=== PATIENT | female | born 1995 ===

== ENCOUNTER 2025-01-17 07:53 | Outpatient (AMB) | payer OTHER, SELFPAY ==
--- OUTSIDE RECORDS SUMMARY | 2025-01-17 07:57 | XMS_ITS | Clinical Summary ---
Author Organization [facility] [place] Address [address], [place] Phone Care Team Providers Care Medical Clinic Manager Name Role Phone Concepción Clark MD Primary Care Provider [phone] Allergies No known active allergies Medications albuterol HFA (PROAIR HFA ; PROVENTIL HFA ; VENTOLIN HFA) 90 mcg/actuation inhaler Inhale 2 puffs every 6 (six) hours if needed for wheezing. Active fluticasone-umecli dinium-vilanterol (Trelegy Ellipta) 100-62.5-25 mcg inhaler Inhale 1 puff (100 mcg total) 1 (one) time each day. Rinse mouth with water after use to reduce aftertaste and incidence of candidiasis. Do not swallow. Active ondansetron ODT (ZOFRAN-ODT) 4 mg disintegrating tablet Let 1 tablet dissolve under the tongue three times daily as needed for nausea or vomiting. 10 tablet Active Active Problems Problem Noted Date Diagnosed Date Moderate persistent asthma with exacerbation Asthma exacerbation 05/22/2023 Acute right-sided low back pain without sciatica 07/06/2022 Encounters Date Type Department Care Team Description 11/03/2024 12:17 PM EDT - 11/03/2024 1:34 PM EDT Emergency [facility] Emergency Department [address] [place] [address] Ander Sepulveda, Acute otitis externa of left ear, unspecified type (Primary Dx) Discharge Disposition: Home or Self Care from Last 3 Months Surgical History Surgery Date Site/Laterality Comments HAND SURGERY Medical History Medical History Date Comments Asthma Social History Tobacco Use Types Packs/Day Years Used Date Smoking Tobacco: Never Smokeless Tobacco: Never Tobacco Cessation:Counseling Given: Not Answered Alcohol Use Standard Drinks/Week Comments Never 0 (1 standard drink = 0.6 oz pur e alcohol) Interpersonal Safety Answer Date Record ed Physical Abuse 05/22/2023 Verbal Abuse 05/22/2023 Comments Unknown Sex and Gender Information Value Date Recorded Sex Assigned at Female 09/10/2024 8:20 PM EST Legal Sex Female 11:02 AM EDT Gender Identity Female 09/10/2024 8:20 PM EST Sexual Orientation Straight 09/10/2024 8: 20 PM EST Obstetrics History Last Filed Vital Signs Vital Sign Reading Time Taken Comments Blood Pressure 106/79 11/03/2024 11:38 AM EDT Pulse 77 11/03/2024 11:38 AM EDT Temperature 36.7 C (98 F) 11/03/2024 11:38 AM EDT Respiratory Rate 16 11/03/2024 11:38 AM EDT Oxygen Saturation 99% 11/03/2024 11:38 AM EDT Inhaled Oxygen Concentration - - Weight 111 kg (245 lb 8 oz) 11/03/2024 11:38 AM EDT Height 154.9 cm (5' 1 ) 11/03/2024 11:38 AM EDT Body Mass Index 46.39 11/03/2024 11:38 AM EDT Plan of Treatment Health Maintenance Due Date Last Done Comments Pneumococcal Vaccine: Pediatrics (0 to 5 Years) and At-Risk Patients (6 to 64 Years) (1 of 2 - PCV) 2013 IPV Vaccines (3 of 3 - 4-dose series) 07/27/2014 01/24/2014, 07/20/2012 Cervical Cancer Screening: Pap Smear 10/03/2015 Cholesterol Screening (Lipid Panel) 04/28/2022 Depression Screening 04/28/2022 HIV Screening 04/28/2022 Social Influencers of Health Screening 04/28/2022 COVID-19 Vaccine ( season) 2024 05/29/2021, 05/01/2021 Influenza Vaccine (Season Ended) 2025 08/26/2023, 07/01/2023, 08/01/2018, Additional history exists DTaP,Tdap,and Td Vaccines (4 - Td or Tdap) 01/03/2029 01/03/2019, 03/17/2016, 07/20/2012 Meningococcal ACWY Vaccine Completed 08/27/2011 Varicella Vaccines Completed 07/20/2012, 04/04/2007 HPV Vaccines Completed 01/24/2014, 07/25, 03/18/2010 Hepatitis A Vaccines Completed 01/24/2014, 08/11/19 13 MMR Vaccines Completed 01/24/2014, 07/20/2012 Hepatitis B Vaccines Completed 08/25/2015, 01/24/2014, 07/20/2012 Hepatitis C Screening Completed 08/29/2018 HIB Vaccines Aged Out No longer eligi ble based on patient's age to complete this topic Meningococcal B Vaccine Aged Out No l onger eligible based on patient's age to complete this topic RSV Immunization Patients Under 20 months Aged Out No longer eligible based on patient's age to complete this topic Advance Directives * Full Code - Confirmed (Latest Code Status on File) Date Activated Date Inactivated Comments 05/22/2023 2:11 AM 05/24/2023 3:43 PM This code status was ascertained in the following way: Discussed and Confirmed with patient. Care Teams Medical Clinic Manager Relationship Specialty Start Date End Date Concepción Clark MD [address] [place] [id number] PCP - General Internal Medicine 05/21/23
--- NOTE | 2025-01-17 08:28 | MHC.PC.OV ---
Vital Signs 01/17/25 08:34 Height 5 ft 1.42 in Weight 238 lb 4 oz BMI 44.4 BP 104/80 Blood Pressure Location Lt brachial Position Sitting Respiration 16 Pulse 83 Pulse Source Pulse Oximeter Temp 98.5 F Temp Source Oral Pulse Oximetry (%) 98 Oxygen Delivery Method Room Air Intake Visit Reasons: establish care Patient Support Associate Required: No Accompanied by: Mother Allergies No Known Allergies Allergy (Verified 01/17/25 08:54) Medication List - Last Reconciled 01/17/25 by LUCINA Iglesias albuterol sulfate 90 mcg/actuation 2 puffs inhalation Q6H PRN Tobacco use date assessed: 01/17/25 Dental Screening Dental Screen Date: 01/17/25 Did you have a dental visit in the last 12 months?: Yes Did you have a dental problem in the last 6 months where you did not have access to dental care?: No Was dental information given to patient?: Patient has dentist HPI establish care HPI Details Previous PCP: Reports that she was in [facility] and the they used to give her different dr. kael Palomo Last visit: 2 years ago Last PE:same Specialist: no OBGYN:will need a referral Past medical history: moderate Asthma, haital hernia, fatty liver, ?pre or diabetic, recurrent zohreh, morbid obesity-was supposed to have gastric bypass and they was going to repair her hernia but she loss her insurance Past Surgical history:right hand surgery age 11 years Medications: symbicort inhaler, ventolin inhaler Family HX: Problem: genital herpes: a1c 6.0% prediabetes PFSH Family History (Updated 01/17/25 @ 09:08 by LUCINA Iglesias) Maternal Grandmother Diabetes Father Heart attack Maternal Grandmother Hypertension Mother Asthma Paternal Grandmother Diabetes Social History (Updated 01/17/25 @ 08:41 by KASSY Mckeon) Household Members: Family Both parents involved: No Caregiver staying overnight: No Housing: Apartment Patient Tobacco Use Status: Current someday Tobacco user e-Cigarette/Vaping Use: Never Used Second Hand Smoke Exposure: No service: No Current occupational status: unemployed Current occupational exposures/hazards: No Cognitive needs: No Hearing needs: No Vision needs: No Questionnaire PHQ-9 Over the last 2 weeks, how often have you been bothered by any of the following problems? 1. Little interest or pleasure in doing things: not at all 2. Feeling down, depressed, or hopeless: not at all 3. Trouble falling or staying asleep, or sleeping too much: not at all 4. Feeling tired or having little energy: several days 5. Poor appetite or overeating: not at all 6. Feeling bad about yourself - or that you are a failure or have let yourself or your family down: not at all 7. Trouble concentrating on things, such as reading the newspaper or watching television: not at all 8. Moving or speaking so slowly that other people could have noticed. Or the opposite - being so fidgety or restless that you have been moving around a lot more than usual: not at all 9. Thoughts that you would be better off or of hurting yourself in some way: not at all Total score: 1 Source: Developed by Drs. Ankit Colón, Alessandra Espinoza, Wesley Ferraro and colleagues, with an educational iban from [employer]. Thrive Questionnaire Date Thrive assessed: 01/07/25 I am a: Patient What is your living situation today?: I have a steady place to live Within the past 12 months, did the food you bought not last and you didn't have the money to get more?: Never true Within the past 12 months, did you worry whether your food would run out before you got money to buy more?: Never true Do you have trouble paying for medicines?: No Do you have trouble getting transportation to medical appointments?: No Do you have trouble paying your heating and electricity bill?: No Do you have trouble taking care of your child, family member or friend?: No Do you have trouble with day-to-day activities such as bathing, preparing meals, shopping, managing finances, etc.?: No Are you currently unemployed and looking for a job?: Yes Are you interested in more education?: No Please select the resources that you would like help with: None Currently or been in a relationship where the following occur: I choose not to answer THRIVE Score: 0 AUDIT C Alcohol Use Questionnaire (AUDIT-C) 1. How often do you have a drink containing alcohol?: 2-4 times a month 2. How many drinks containing alcohol do you have on a typical day when you are drinking?: 5 or 6 3. How often do you have six or more drinks on one occasion?: Weekly Total Score: 7 DACIA-7 AMB Questionnaire DACIA-7 Date DACIA - 7 assessed: 01/17/25 Feeling nervous, anxious, or on edge: 0 = Not at all Not being able to stop or control worryin = Not at all Worrying too much about different things: 0 = Not at all Trouble relaxin = Not at all Being so restless that it is hard to sit still: 0 = Not at all Becoming easily annoyed or irritable: 0 = Not at all Feeling afraid as if something awful might happen: 0 = Not at all Total DACIA-7 score (0-4 normal; 5-9 mild; 10-14 moderate; 15-21 severe): 0 Source: Developed by Drs. Ankit Colón, Alessandra Espinoza, Wesley Ferraro and colleagues, with an educational iban from [employer]. Review of Systems Const Reports headache(s) (hx migraines sound and light bothers her) Eyes Denies loss of vision ENT Denies vertigo, Denies dizziness, Reports headache(s) (hx migraines sound and light bothers her) and Denies sore throat Card Denies chest pain, Denies leg edema and Denies lightheadedness Resp Denies cough, Denies hemoptysis and Denies wheezing GI Denies abdominal pain, Denies melena, Denies constipation, Reports heartburn (frequent attribute to her hernia), Denies diarrhea and Denies vomiting Reports abnormal menses (goes for only 3 times a year. Stopped Depo like 2 years ago), Denies urinary frequency, Denies dysuria and Denies urinary urgency Musc Denies arthralgias, Denies joint swelling, Denies numbness and Denies tingling Neuro Denies Abnormal speech present, Denies behavioral changes, Denies vertigo, Denies dizziness, Reports headache(s) (hx migraines sound and light bothers her), Denies loss of vision, Denies memory loss, Denies numbness and Denies tingling Psych Denies anxiety, Denies behavioral changes, Denies depression, Denies memory loss and Denies panic attacks Charlie/Lymph Denies easy bleeding and Denies easy bruising Aller/Immun Denies wheezing Physical exam (Primary Care) Vital Signs: Last Vital Signs Temp 98.5 F 01/17/25 08:34 Pulse 83 01/17/25 08:34 Resp 16 01/17/25 08:34 BP 104/80 01/17/25 08:34 Pulse Ox 98 01/17/25 08:34 Oxygen Delivery Method Room Air 01/17/25 08:34 BMI result Body Mass Index 44.4 Tobacco/Smoking Status: Tobacco use Status Tobacco use date assessed 01/17/25 01/17/25 08:44 Patient Tobacco Use Status Current someday Tobacco 01/17/25 08:44 e-Cigarette/Vaping Use Never Used 01/17/25 08:44 PHQ-9: PHQ-9 Score PHQ-9: Total score 1 01/17/25 08:45 Thrive Assessment: Date of Thrive Assessment Date Thrive assessed 01/07/25 01/17/25 08:31 Currently or been in a relationship where the following occur: I choose not to answer Const General: healthy appearing, no acute distress, alert and awake Nutritional Appearance: well nourished Orientation/consciousness: oriented to person, oriented to place and oriented to time HENMT Ears: TM's normal bilaterally General nose exam: Normal nasal mucous membranes and turbinates present Eyes Conjunctivae: conjunctivae normal Sclerae: sclerae normal Pupils: Equal, round and reactive pupils present Neck Neck: Yes no lymphadenopathy and Yes no JVD Thyroid: Thyroid normal Carotids: no bruits Resp Effort & Inspection: normal respiratory effort and not tachypneic Auscultation: no crackles, no rales, no rhonchi and no wheezes Cardio Rate: regular rate Rhythm: regular rhythm Heart sounds: no murmurs and normal S1 and S2 GI Palpation (GI): Soft to palpation, Tenderness to palpation present (GI) in the epigastrum, no hepatomegaly and no splenomegaly Auscultation: normal bowel sounds Skin General skin exam: no rashes or lesions noted and dry skin Neuro General: oriented to person, oriented to place and oriented to time Cranial nerves: Yes Equal, round and reactive pupils present Speech: No Abnormal speech present Gait exam (Neuro): Normal gait present Motor exam (neuro): no tremor noted Extrem Right upper extremity: full ROM Left upper extremity: full ROM Right lower extremity: full ROM; no edema Left lower extremity: full ROM; no edema Psych Mental Status: mental status grossly normal Speech and movement: Normal speech and movement present Affect: normal affect Attitude: cooperative Thought process: Normal thought process present Results AMB Hemoglobin A1c AMB Hemoglobin A1c 6.0 % Last Edit by KASSY Mckeon on 01/17/25 09:23 Coding Assessment & Plan Assessment & Plan Orders: Orders Lipid Panel Today Z00.00 - Encounter for general adult medical examination without abnormal findings AMB Hemoglobin A1c Today Z13.9 - Encounter for screening, unspecified Complete Blood Count Auto Diff Today Z00.00 - Encounter for general adult medical examination without abnormal findings Comprehensive [place]. Panel Fast Today Z00.00 - Encounter for general adult medical examination without abnormal findings TSH reflex Free T4 Today Z00.00 - Encounter for general adult medical examination without abnormal findings UA CC w/rflx Micro + Cult Today Z00.00 - Encounter for general adult medical examination without abnormal findings Vitamin D 25-OH Total Today Z00.00 - Encounter for general adult medical examination without abnormal findings Medications: New albuterol sulfate 90 mcg/actuation (Ventolin HFA) 2 puffs inhalation Q4-6H PRN 8.5 grams 3RF shortness of breath or wheezing valacyclovir 500 mg PO BID 20 tabs 0RF 10 days budesonide-formoterol 160-4.5 mcg/actuation (Symbicort) 2 puffs inhalation BID 10.2 grams 3RF
[2025-01-17 08:34] VITALS: BP 104/80; PULSE 83; RESP 16; TEMP 36.9; O2SAT 98; BMI 44.4
== END 2025-01-17 09:29 | disposition home or self-care (01) ==
LOC: HO.HMCH 07:54
DX: Z13.9 Encounter for screening, unspecified (principal)

== ENCOUNTER → 2025-01-17 07:53 | Outpatient (BNVA) | payer OTHER, SELFPAY | DX: R73.03 Prediabetes (principal); J45.909 Unspecified asthma, uncomplicated; A60.04 Herpesviral vulvovaginitis; K44.9 Diaphragmatic hernia without obstruction or gangrene; R12 Heartburn; N92.6 Irregular menstruation, unspecified; J45.40 Moderate persistent asthma, uncomplicated; E66.01 Morbid (severe) obesity due to excess calories; G43.901 Migraine, unspecified, not intractable, with status migrainosus; K76.0 Fatty (change of) liver, not elsewhere classified | CPT/HCPCS: 83036; 96127; 99202 ==

== ENCOUNTER 2025-01-18 07:30 | Outpatient (REF) | payer OTHER, SELFPAY ==
[2025-01-18 07:47] LABS: MANUAL DIFF FLAG NO
[2025-01-18 08:03] LABS: Basophils Absolute Auto 0.1 X10*3/uL (0.0-0.2); Basophils Percent Auto 0.4 % (0-2); Eosinophils Absolute Auto 0.5 X10*3/uL (0.0-0.4); Eosinophils Percent Auto 3.7 % (0-4); Hematocrit 39.9 % (37.0-47.0); Imm Gran Abs Auto 0.06 X10*3/uL (0.00-0.03); Imm Gran Pct Auto 0.4 % (0.0-0.4); Lymphocytes Absolute Auto 3.3 X10*3/uL (1.2-4.9); Lymphocytes Percent Auto 24.4 % (20-40); Mean Corpuscular HGB Conc 32.6 g/dl (31.0-35.0); Mean Corpuscular Volume 76.9 fL (80.0-98.0); Mean Platelet Volume 9.4 fL (9.4-12.3); Monocytes Absolute Auto 0.6 X10*3/uL (0.1-1.2); Monocytes Percent Auto 4.3 % (2-11); Neutrophils Absolute Auto 9.1 x10*3/uL (2.0-8.3); Neutrophils Percent Auto 66.8 % (45-73); Platelet Count 308 X10*3/uL (160-400); Red Blood Count 5.19 X10*6/uL (4.20-5.50); Red Cell Distribution Width 15.8 % (11.0-16.0); White Blood Count 13.6 X10*3/uL (4.8-10.8)
[2025-01-18 08:12] LABS: Appearance Urine Clear; Color Urine Yellow; Glucose Urine UA Negative (Negative); Leukocyte Esterase Urine Trace (Negative); Nitrite Urine Negative (Negative); PH 5.5 (5.0-9.0); Specific Gravity - Urine 1.025 (1.005-1.025); UMIC TRIGGER UACC YES; Urine Blood Negative (Negative); Urine Ketones Negative (Negative); Urine Protein Negative (Neg-Trace)
[2025-01-18 08:15] LABS: Bacteria Urine 1+ (None Seen); Hyaline Casts Urine 0-2 /LPF (0-2); RBC Urine 0-2 /HPF (0-2); UACC Culture Trigger YES
[2025-01-18 08:34] LABS: Alanine Aminotransferase 67 U/L (0-31); Albumin Level 4.3 g/dL (3.5-5.0); Alkaline Phosphatase 108 U/L (39-117); Anion Gap 12 (12-20); Aspartate Amino Transferase 43 U/L (5-31); Bilirubin Total 0.2 mg/dL (0.0-1.0); Blood Urea Nitrogen 11 mg/dL (9-16); Calcium 9.5 mg/dL (8.4-10.2); Carbon Dioxide 23 mmol/L (22-29); Chloride 105 mmol/L (96-108); Cholesterol 136 mg/dL (<200); Estimated Glomerular Filt Rate > 60; Glucose Fasting 118 mg/dL (60-99); HDL Cholesterol 37 mg/dL (>40); LDL Cholesterol Calculated 49 mg/dL (<100); Potassium 4.2 mmol/L (3.3-5.1); Sodium 136 mmol/L (135-145); Total Protein 7.4 g/dL (6.5-8.0); Triglycerides 250 mg/dL (<150)
[2025-01-18 08:54] LABS: TSH reflex Free T4 1.45 uIU/mL (0.32-4.0); Vitamin D 25-OH Total 23.6 ng/mL (>30)
== END 2025-01-18 07:31 | disposition home or self-care (01) ==
LOC: HO.LAB 07:30
DX: Z00.00 Encounter for general adult medical examination without abnormal findings (principal)
CPT/HCPCS: 36415; 80053; 80061; 81001; 82306; 84443; 85025; 87086; 87147

== ENCOUNTER 2025-03-15 09:30 | Outpatient (AMB) | payer OTHER, SELFPAY ==
[2025-03-15 09:32] VITALS: BP 130/78; PULSE 77; RESP 18; TEMP 36.3; O2SAT 99; BMI 44.3
--- NOTE | 2025-03-15 09:32 | A.OFFPC_ITS ---
Vital Signs 03/15/25 09:32 Height 5 ft 1.5 in Weight 238 lb 4 oz BMI 44.3 BP 130/78 Blood Pressure Location Lt brachial Position Sitting Respiration 18 Pulse 77 Pulse Source Pulse Oximeter Temp 97.3 F Temp Source Temporal Artery Scan Pulse Oximetry (%) 99 Oxygen Delivery Method Room Air Intake Visit Reasons: 8 week f/u Finance Teacher Required: No Accompanied by: Self / Same As Patient Allergies No Known Allergies Allergy (Verified 03/15/25 09:47) Medication List - Last Reconciled 03/15/25 by LUCINA Iglesias albuterol sulfate 90 mcg/actuation 2 puffs inhalation Q6H PRN albuterol sulfate 90 mcg/actuation (Ventolin HFA) 2 puffs inhalation Q4-6H PRN budesonide-formoterol 160-4.5 mcg/actuation (Symbicort) 2 puffs inhalation BID valacyclovir 500 mg PO BID 10 days Tobacco use date assessed: 03/15/25 Dental Screening Dental Screen Date: 03/15/25 Did you have a dental visit in the last 12 months?: Yes Did you have a dental problem in the last 6 months where you did not have access to dental care?: No Was dental information given to patient?: Patient has dentist HPI 8 week f/u HPI Details The patient is a 29-year-old female presenting with fatigue, gastrointestinal issues, migraines, HLD, Weight management, asthma The patient reports experiencing gastrointestinal recurrent heartburns/hx of haital hernia, for which she has an upcoming appointment with a nurses' association counselor. She has been experiencing migraines, which occur intermittently, lasting three to four days at a time. The patient reports persistent fatigue despite sleeping 8 to 9 hours per night. She denies any episodes of waking up gasping for air and has not experienced any significant changes since a sleep study conducted two years ago. The patient has been losing weight, previously weighing 260 pounds, which she attributes to dietary changes. Laboratory results indicate a slightly elevated white blood cell count, normal hemoglobin and hematocrit levels, and a fasting glucose level in the prediabetic range. Liver enzymes are slightly elevated, consistent with fatty liver disease, and triglycerides are elevated at 250 mg/dL. Vitamin D levels are low, measured at 23 ng/mL. She reports mild lower back pain that she thinks is related to epidural injections received during childbirth of her kids. Reports that it is not always present and it is mild in nature. [facility]LY [facility] Medical History Migraines Recurrent candidiasis of vagina Morbid obesity Fatty liver Asthma Hiatal hernia Genital herpes Prediabetes Surgical History H/O hand surgery Family History Maternal Grandmother Diabetes Father Heart attack Maternal Grandmother Hypertension Mother Asthma Paternal Grandmother Diabetes Social History Household Members: Family Both parents involved: No Caregiver staying overnight: No Housing: Apartment Alcohol intake: current Alcohol intake frequency: holidays/special occasions only Patient Tobacco Use Status: Current someday Tobacco user e-Cigarette/Vaping Use: Never Used Second Hand Smoke Exposure: No service: No Current occupational status: unemployed Current occupational exposures/hazards: No Cognitive needs: No Hearing needs: No Vision needs: No Questionnaire PHQ-9 Over the last 2 weeks, how often have you been bothered by any of the following problems? 1. Little interest or pleasure in doing things: not at all 2. Feeling down, depressed, or hopeless: not at all 3. Trouble falling or staying asleep, or sleeping too much: not at all 4. Feeling tired or having little energy: several days 5. Poor appetite or overeating: not at all 6. Feeling bad about yourself - or that you are a failure or have let yourself or your family down: not at all 7. Trouble concentrating on things, such as reading the newspaper or watching television: not at all 8. Moving or speaking so slowly that other people could have noticed. Or the opposite - being so fidgety or restless that you have been moving around a lot more than usual: not at all 9. Thoughts that you would be better off or of hurting yourself in some way: not at all Total score: 1 Depression Screening Interpretation: Negative Depression Screening Done: Yes Source: Developed by Drs. Ankit Colón, Alessandra B.W. Wesley Espinoza and colleagues, with an educational iban from [employer]. Thrive Questionnaire Date Thrive assessed: 03/15/25 I am a: Patient What is your living situation today?: I have a steady place to live Within the past 12 months, did the food you bought not last and you didn't have the money to get more?: Never true Within the past 12 months, did you worry whether your food would run out before you got money to buy more?: Never true Do you have trouble paying for medicines?: No Do you have trouble getting transportation to medical appointments?: No Do you have trouble paying your heating and electricity bill?: No Do you have trouble taking care of your child, family member or friend?: No Do you have trouble with day-to-day activities such as bathing, preparing meals, shopping, managing finances, etc.?: No Are you currently unemployed and looking for a job?: Yes Are you interested in more education?: No Please select the resources that you would like help with: None Currently or been in a relationship where the following occur: I choose not to answer THRIVE Score: 0 AUDIT C Alcohol Use Questionnaire (AUDIT-C) 1. How often do you have a drink containing alcohol?: 2-4 times a month 2. How many drinks containing alcohol do you have on a typical day when you are drinking?: 5 or 6 3. How often do you have six or more drinks on one occasion?: Weekly Total Score: 7 DACIA-7 AMB Questionnaire DACIA-7 Date DACIA - 7 assessed: 03/15/25 Feeling nervous, anxious, or on edge: 0 = Not at all Not being able to stop or control worryin = Not at all Worrying too much about different things: 0 = Not at all Trouble relaxin = Not at all Being so restless that it is hard to sit still: 0 = Not at all Becoming easily annoyed or irritable: 0 = Not at all Feeling afraid as if something awful might happen: 0 = Not at all Total DACIA-7 score (0-4 normal; 5-9 mild; 10-14 moderate; 15-21 severe): 0 Source: Developed by Drs. Anikt Colón, Wesley Dahl and colleagues, with an educational iban from [employer]. Review of Systems Const Reports daytime sleepiness, Reports fatigue, Reports headache(s) (on and off, but severe when present (could last 3 days)) and Reports snoring Eyes Denies loss of vision and Reports photophobia (during headaches) ENT Denies vertigo, Denies dizziness, Reports headache(s) (on and off, but severe when present (could last 3 days)) and Denies sore throat Card Denies chest pain, Denies leg edema and Denies lightheadedness Resp Denies cough, Denies hemoptysis, Reports snoring and Denies wheezing GI Denies abdominal pain, Denies melena, Denies constipation, Reports heartburn (recurrent depending on what she eats), Denies diarrhea and Denies vomiting Reports abnormal menses, Denies urinary frequency, Denies dysuria and Denies urinary urgency Musc Reports back pain (mild and occasional), Denies arthralgias, Denies joint swelling, Denies numbness and Denies tingling Neuro Denies Abnormal speech present, Denies behavioral changes, Denies vertigo, Denies dizziness, Reports headache(s) (on and off, but severe when present (could last 3 days)), Denies loss of vision, Denies memory loss, Denies numbness and Denies tingling Psych Denies anxiety, Denies behavioral changes, Denies depression, Denies memory loss and Denies panic attacks Endo Reports fatigue Charlie/Lymph Denies easy bleeding and Denies easy bruising Aller/Immun Denies wheezing Physical exam (Primary Care) Vital Signs: Last Vital Signs Temp 97.3 F 03/15/25 09:32 Pulse 77 03/15/25 09:32 Resp 18 03/15/25 09:32 BP 130/78 03/15/25 09:32 Pulse Ox 99 03/15/25 09:32 Oxygen Delivery Method Room Air 03/15/25 09:32 BMI result Body Mass Index 44.3 Tobacco/Smoking Status: Tobacco use Status Tobacco use date assessed 03/15/25 03/15/25 09:39 Patient Tobacco Use Status Current someday Tobacco 03/15/25 09:39 e-Cigarette/Vaping Use Never Used 03/15/25 09:39 PHQ-9: PHQ-9 Score PHQ-9: Total score 1 03/15/25 13:05 Depression Screening Interpretation: Negative Thrive Assessment: Date of Thrive Assessment Date Thrive assessed 03/15/25 03/15/25 09:39 Currently or been in a relationship where the following occur: I choose not to answer Const General: healthy appearing, no acute distress, alert and awake Nutritional Appearance: obese morbidly obese Orientation/consciousness: oriented to person, oriented to place and oriented to time [facility] Ears: hearing grossly normal bilaterally General nose exam: Normal nasal mucous membranes and turbinates present Eyes Conjunctivae: conjunctivae normal Sclerae: sclerae normal Pupils: Equal, round and reactive pupils present Direct Ophthalmoscopy: photophobia (during headaches) Neck Neck: Yes no lymphadenopathy and Yes no JVD Thyroid: Thyroid normal Carotids: no bruits Resp Effort & Inspection: normal respiratory effort and not tachypneic Auscultation: no crackles, no rales, no rhonchi and no wheezes Cardio Rate: regular rate Rhythm: regular rhythm Heart sounds: no murmurs and normal S1 and S2 GI Inspection: Yes obesity Palpation (GI): Soft to palpation, nontender, no hepatomegaly and no splenomegaly Auscultation: normal bowel sounds Back/Spine/Pelvis Thoracic/Lumbar Spine: No lumbar spinal tenderness Skin General skin exam: no rashes or lesions noted and dry skin Neuro General: oriented to person, oriented to place, oriented to time, no focal motor deficits and CN's II-XI intact bilaterally Cranial nerves: Yes Equal, round and reactive pupils present Speech: No Abnormal speech present Gait exam (Neuro): Normal gait present Motor exam (neuro): no tremor noted Extrem Right upper extremity: full ROM Left upper extremity: full ROM Right lower extremity: full ROM; no edema Left lower extremity: full ROM; no edema Psych Mental Status: mental status grossly normal Speech and movement: Normal speech and movement present Affect: normal affect Attitude: cooperative Thought process: Normal thought process present Results Reviewed Results Reviewed: Laboratory Tests 01/17/25 01/18/25 01/18/25 09:03 07:45 07:46 WBC 13.6 H RBC 5.19 Hgb 13.0 Hct 39.9 MCV 76.9 L MCH 25.0 L MCHC 32.6 RDW 15.8 Plt Count 308 Sodium 136 Potassium 4.2 Chloride 105 Carbon Dioxide 23 Anion Gap 12 BUN 11 Creatinine 0.70 Estim Creat Clear Calc Not Reportable Estimated GFR > 60 Fasting Glucose 118 H Hgb A1c (Clinic) 6.0 Calcium 9.5 Total Bilirubin 0.2 AST 43 H ALT 67 H Alkaline Phosphatase 108 Total Protein 7.4 Albumin 4.3 Cholesterol 136 LDL Cholesterol, Calc 49 HDL Cholesterol 37 L 25-OH Vitamin D Total 23.6 L TSH 1.45 Urine Color Yellow Urine Appearance Clear Urine pH 5.5 Ur Specific Mcclave 1.025 Urine Protein Negative Urine Glucose (UA) Negative Urine Ketones Negative Urine Blood Negative Urine Nitrite Negative Ur Leukocyte Esterase Trace H Urine RBC 0-2 Urine WBC 6-10 H Ur Squamous Epith Cells 11-20 Urine Bacteria 1+ Hyaline Casts 0-2 Coding Level of Care Code Est Pt Level 4 (16838) Diagnoses Prediabetes R73.03 Morbid obesity E66.01 Heartburn R12 Fatty liver K76.0 Irregular periods/menstrual cycles N92.6 Anemia, unspecified type D64.9 Anemia type: unspecified type Migraine with status migrainosus, not intractable, unspecified migraine type G43.901 Intractability: not intractable Migraine type: unspecified Status migrainosus presence: with status migrainosus Moderate persistent asthma, unspecified whether complicated J45.40 Asthma complication type: unspecified Asthma persistence: persistent Asthma severity: moderate Mixed hyperlipidemia E78.2 Hyperlipidemia type: mixed hyperlipidemia Fatigue, unspecified type R53.83 Fatigue type: unspecified Time Spent (min) 43 Assessment & Plan Assessment & Plan (1) Prediabetes: Code(s): R73.03 - Prediabetes Category: Medical Plan: The patient remains in the prediabetic range. Reinforced low sugar/carbohydrate diet We will continue to monitor fasting glucose and A1c (2) Morbid obesity: Code(s): E66.01 - Morbid (severe) obesity due to excess calories Category: Medical Plan: Encouraged to exercise for at least 30 minutes a day/5 days a week Healthy eating discussed. Encouraged to eat fruits/vegetables, protein- fish/baked chicken, and to avoid salty/fried foods, sweets, caffeine and carbohydrates. Encouraged to increase water intake 6-8 glasses a day (3) Heartburn: Code(s): R12 - Heartburn Category: Medical Plan: Do not eat meals or drink carbonated beverages within 3 hr of bedtime Decrease the amount of fried, fatty, and spicy foods to decrease gastric acid production Raise the head of the bed using 4 to 6-inch blocks, especially if nocturnal symptoms are present Lose weight if indicated; avoid tight-fitting clothing, especially around the waist Avoid foods that relax the Lower esophageal sphincter (chocolate, peppermint, high-fat foods etc.,) (4) Fatty liver: Code(s): K76.0 - Fatty (change of) liver, not elsewhere classified Category: Medical Plan: AST 43 and ALT 67 Avoid alcohol, moderate use of medication containing acetaminophen, continue low-fat foods We will repeat CMP three-month (5) Irregular periods/menstrual cycles: Code(s): N92.6 - Irregular menstruation, unspecified Category: Medical Plan: Patient reports that this started after discontinuing Depo injections 3 years ago She was referred to OBGYN (6) Anemia: Code(s): D64.9 - Anemia, unspecified Category: Medical Qualifiers: Anemia type: unspecified type Qualified Code(s): D64.9 - Anemia, unspecified Plan: Patient reports a history. H&H within normal limits. MCV an MCH noted to be low. The patient is complaining of fatigue. We will add a iron panel to her follow up labs (7) Migraines: Code(s): G43.909 - Migraine, unspecified, not intractable, without status migrainosus Category: Medical Qualifiers: Intractability: not intractable Migraine type: unspecified Status migrainosus presence: with status migrainosus Qualified Code(s): G43.901 - Migraine, unspecified, not intractable, with status migrainosus Plan: Patient reports migraines the last for 3 days interval at times. Patient was st arted on vitamin B2 400 mg daily, magnesium oxide 400 mg at bedtime. Continues to take Tylenol for headache. Increase fluid intake. Sumatriptan 50 mg p.r.n. ordered for severe headaches. The patient was referred to Neurology (8) Asthma: Code(s): J45.909 - Unspecified asthma, uncomplicated Category: Medical Qualifiers: Asthma complication type: unspecified Asthma persistence: persistent Asthma severity: moderate Qualified Code(s): J45.40 - Moderate persistent asthma, uncomplicated Plan: Reports that the breathing has been much better since starting back on her inhalers. Lifestyle modifications like smoking cessation. Wear a mask when around irritants, fumes, or particulate matter (e.g., painting, lawn mowing). Increase humidification at home, especially in the winter. Annual flu shots and the pneumonia shot can mitigate exacerbation. Increase fluids if not contraindicated because of heart failure. Continue Symbicort 2 puffs inhalation b.i.d., albuterol sulfate 90 mcg/actuation 2 puff inhalation q.6 p.r.n. (9) HLD (hyperlipidemia): Code(s): E78.5 - Hyperlipidemia, unspecified Category: Medical Qualifiers: Hyperlipidemia type: mixed hyperlipidemia Qualified Code(s): E78.2 - Mixed hyperlipidemia Plan: Triglycerides 250, total cholesterol 136, LDL 49, HDL 37 Discussed lifestyle modifications including dietary changes and physical activity (10) Fatigue: Code(s): R53.83 - Other fatigue Category: Medical Qualifiers: Fatigue type: unspecified Qualified Code(s): R53.83 - Other fatigue Plan: Patient complain of fatigue, reports feeling extremely tired even after 8 hours of sleep. Reports that she had a sleep study done in a lab 2 years ago that came out normal and since then she had lost some weight. We will do an in-home sleep study along with some blood work to further evaluate. Orders: Orders Complete Blood Count Auto Diff Today A60.04 - Herpesviral vulvovaginitis, E66.01 - Morbid (severe) obesity due to excess calories, G43.901 - Migraine, unspecified, not intractable, with status migrainosus, J45.40 - Moderate persistent asthma, uncomplicated, K44.9 - Diaphragmatic hernia without obstruction or gangrene, K76.0 - Fatty (change of) liver, not elsewhere classified, N92.6 - Irregular menstruation, unspecified, R12 - Heartburn, R73.03 - Prediabetes CRP High Sensitivity Today A60.04 - Herpesviral vulvovaginitis, E66.01 - Morbid (severe) obesity due to excess calories, G43.901 - Migraine, unspecified, not intractable, with status migrainosus, J45.40 - Moderate persistent asthma, uncomplicated, K44.9 - Diaphragmatic hernia without obstruction or gangrene, K76.0 - Fatty (change of) liver, not elsewhere classified, N92.6 - Irregular menstruation, unspecified, R12 - Heartburn, R73.03 - Prediabetes Erythrocyte Sedimentation Rate Today A60.04 - Herpesviral vulvovaginitis, E66.01 - Morbid (severe) obesity due to excess calories, G43.901 - Migraine, unspecified, not intractable, with status migrainosus, J45.40 - Moderate persistent asthma, uncomplicated, K44.9 - Diaphragmatic hernia without obstruction or gangrene, K76.0 - Fatty (change of) liver, not elsewhere classified, N92.6 - Irregular menstruation, unspecified, R12 - Heartburn, R73.03 - Prediabetes Syphilis Screen Today A60.04 - Herpesviral vulvovaginitis, E66.01 - Morbid (severe) obesity due to excess calories, G43.901 - Migraine, unspecified, not intractable, with status migrainosus, J45.40 - Moderate persistent asthma, uncomplicated, K44.9 - Diaphragmatic hernia without obstruction or gangrene, K76.0 - Fatty (change of) liver, not elsewhere classified, N92.6 - Irregular menstruation, unspecified, R12 - Heartburn, R73.03 - Prediabetes CT NG by PCR Urine Today A60.04 - Herpesviral vulvovaginitis, E66.01 - Morbid (severe) obesity due to excess calories, G43.901 - Migraine, unspecified, not intractable, with status migrainosus, J45.40 - Moderate persistent asthma, uncomplicated, K44.9 - Diaphragmatic hernia without obstruction or gangrene, K76.0 - Fatty (change of) liver, not elsewhere classified, N92.6 - Irregular menstruation, unspecified, R12 - Heartburn, R73.03 - Prediabetes UA CC w/rflx Micro + Cult Today A60.04 - Herpesviral vulvovaginitis, E66.01 - Morbid (severe) obesity due to excess calories, G43.901 - Migraine, unspecified, not intractable, with status migrainosus, J45.40 - Moderate persistent asthma, uncomplicated, K44.9 - Diaphragmatic hernia without obstruction or gangrene, K76.0 - Fatty (change of) liver, not elsewhere classified, N92.6 - Irregular menstruation, unspecified, R12 - Heartburn, R73.03 - Prediabetes TSH reflex Free T4 Today A60.04 - Herpesviral vulvovaginitis, E66.01 - Morbid (severe) obesity due to excess calories, G43.901 - Migraine, unspecified, not intractable, with status migrainosus, J45.40 - Moderate persistent asthma, uncomplicated, K44.9 - Diaphragmatic hernia without obstruction or gangrene, K76.0 - Fatty (change of) liver, not elsewhere classified, N92.6 - Irregular menstruation, unspecified, R12 - Heartburn, R73.03 - Prediabetes Reflex Titer and Pattern Today A60.04 - Herpesviral vulvovaginitis, E66.01 - Morbid (severe) obesity due to excess calories, G43.901 - Migraine, unspecified, not intractable, with status migrainosus, J45.40 - Moderate persistent asthma, uncomplicated, K44.9 - Diaphragmatic hernia without obstruction or gangrene, K76.0 - Fatty (change of) liver, not elsewhere classified, N92.6 - Irregular menstruation, unspecified, R12 - Heartburn, R73.03 - Prediabetes Comprehensive [place]. Panel Fast Today A60.04 - Herpesviral vulvovaginitis, E66.01 - Morbid (severe) obesity due to excess calories, G43.901 - Migraine, unspecified, not intractable, with status migrainosus, J45.40 - Moderate persistent asthma, uncomplicated, K44.9 - Diaphragmatic hernia without obstruction or gangrene, K76.0 - Fatty (change of) liver, not elsewhere classified, N92.6 - Irregular menstruation, unspecified, R12 - Heartburn, R73.03 - Prediabetes Vitamin D 25-OH Total Today A60.04 - Herpesviral vulvovaginitis, E66.01 - Morbid (severe) obesity due to excess calories, G43.901 - Migraine, unspecified, not intractable, with status migrainosus, J45.40 - Moderate persistent asthma, uncomplicated, K44.9 - Diaphragmatic hernia without obstruction or gangrene, K76.0 - Fatty (change of) liver, not elsewhere classified, N92.6 - Irregular menstruation, unspecified, R12 - Heartburn, R73.03 - Prediabetes HIV Ab/Ag Today A60.04 - Herpesviral vulvovaginitis, E66.01 - Morbid (severe) obesity due to excess calories, G43.901 - Migraine, unspecified, not intractable, with status migrainosus, J45.40 - Moderate persistent asthma, uncomplicated, K44.9 - Diaphragmatic hernia without obstruction or gangrene, K76.0 - Fatty (change of) liver, not elsewhere classified, N92.6 - Irregular menstruation, unspecified, R12 - Heartburn, R73.03 - Prediabetes Hemoglobin A1c Today A60.04 - Herpesviral vulvovaginitis, E66.01 - Morbid (severe) obesity due to excess calories, G43.901 - Migraine, unspecified, not intractable, with status migrainosus, J45.40 - Moderate persistent asthma, uncomplicated, K44.9 - Diaphragmatic hernia without obstruction or gangrene, K76.0 - Fatty (change of) liver, not elsewhere classified, N92.6 - Irregular menstruation, unspecified, R12 - Heartburn, R73.03 - Prediabetes IRON PROFILE Today D64.9 - Anemia, unspecified Vitamin B12 and Folate Today R53.83 - Other fatigue Referrals VERMIN EXTERMINATOR Referral A60.04 - Herpesviral vulvovaginitis, N92.6 - Irregular menstruation, unspecified Neurology Referral G43.901 - Migraine, unspecified, not intractable, with status migrainosus Medications: New riboflavin (vitamin B2) 400 mg PO DAILY 90 tabs 3RF sumatriptan succinate take 1 tab at onset of headache; if no relief may repeat 1 tab after at least 2 hrs; max = 4 tabs/24 hr PO 14 tabs 0RF 30 days magnesium oxide 400 mg PO BEDTIME 90 tabs 3RF cholecalciferol (vitamin D3) 50 mcg PO DAILY 90 caps 3RF
--- OUTSIDE RECORDS SUMMARY | 2025-03-15 09:34 | XMS_ITS | Clinical Summary ---
Author Organization [facility] [place] Address [address] [place], [place] Phone Care Team Providers Care Topper Press Operator Automatic Name Role Phone Concepción Clark MD Primary Care Provider [phone] Allergies No known active allergies Medications albuterol [...] right-sided low back pain without sciatica 07/06/2022 Surgical History Surgery Date Site/Laterality Comments HAND [...] 5 Years) and At-Risk Patients (6 to 49 Years) (1 of 2 - PCV) 2013 IPV Vaccines (3 of 3 - 4-dose series) 07/27/2014 01/24/2014, 07/20/2012 Cervical Cancer Screening: Pap Smear 10/03/2015 Cholesterol Screening (Lipid Panel) 04/28/2022 HIV Screening 04/28/2022 Social Influencers of Health Screening 04/28/2022 COVID-19 Vaccine ( season) 2024 05/29/2021, 05/01/2021 Depression Screening 07/25/2024 Influenza Vaccine (#1) 2025 , 07/01/2023, 08/01/2018, Additional history exists DTaP,Tdap,and Td [...] Discussed and Confirmed with patient. Care Teams Topper Press Operator Automatic Relationship Specialty Start Date End Date Concepción Clark MD [address] [place] [id number] PCP - General Internal Medicine 05/21/23
== END 2025-03-15 10:15 | disposition home or self-care (01) ==
LOC: HO.HMCH 09:31
DX: R73.03 Prediabetes (principal); E66.01 Morbid (severe) obesity due to excess calories; Z68.41 Body mass index [BMI] 40.0-44.9, adult; R12 Heartburn; K76.0 Fatty (change of) liver, not elsewhere classified; N92.6 Irregular menstruation, unspecified; D64.9 Anemia, unspecified; G43.901 Migraine, unspecified, not intractable, with status migrainosus; J45.40 Moderate persistent asthma, uncomplicated; E78.2 Mixed hyperlipidemia; R53.83 Other fatigue

== ENCOUNTER → 2025-03-15 09:30 | Outpatient (BNVA) | payer OTHER, SELFPAY | DX: E66.01 Morbid (severe) obesity due to excess calories (principal); R53.83 Other fatigue; M54.50 Low back pain, unspecified; R73.03 Prediabetes; R12 Heartburn; K76.0 Fatty (change of) liver, not elsewhere classified; N92.6 Irregular menstruation, unspecified; D64.9 Anemia, unspecified; G43.901 Migraine, unspecified, not intractable, with status migrainosus; J45.40 Moderate persistent asthma, uncomplicated; E78.2 Mixed hyperlipidemia; A60.04 Herpesviral vulvovaginitis; Z68.41 Body mass index [BMI] 40.0-44.9, adult | CPT/HCPCS: 99212 ==

== ENCOUNTER 2025-03-16 09:33 | Outpatient (REF) | payer OTHER, SELFPAY ==
--- OUTSIDE RECORDS SUMMARY | 2025-03-16 09:36 | XMS_ITS | Clinical Summary ---
Author Organization [facility] [place] Address [address] [place], [place] Phone Care Team Providers Care Firebreak Cutter Name Role Phone Concepción Clark MD Primary Care Provider [phone] Allergies No known active allergies Medications albuterol [...] Discussed and Confirmed with patient. Care Teams Firebreak Cutter Relationship Specialty Start Date End Date Concepción Clark MD [address] [place] [id number] PCP - General Internal Medicine 05/21/23
[2025-03-16 09:50] LABS: MANUAL DIFF FLAG NO
[2025-03-16 10:52] LABS: Hematocrit 42.2 % (37.0-47.0); Hemoglobin 13.2 g/dl (12.0-16.0); Imm Gran Abs Auto 0.03 X10*3/uL (0.00-0.03); Imm Gran Pct Auto 0.3 % (0.0-0.4); Lymphocytes Absolute Auto 3.3 X10*3/uL (1.2-4.9); Mean Corpuscular HGB Conc 31.3 g/dl (31.0-35.0); Mean Corpuscular Hemoglobin 25.4 pg (27.0-33.0); Mean Corpuscular Volume 81.3 fL (80.0-98.0); NRBC Abs Auto 0.000 X10*3/uL (0.0-0.012); NRBC Pct Auto 0.0 /100WBC (0.0-0.2); Platelet Count 359 X10*3/uL (160-400); Red Blood Count 5.19 X10*6/uL (4.20-5.50); White Blood Count 10.2 X10*3/uL (4.8-10.8)
[2025-03-16 10:57] LABS: Hemoglobin A1C 142.9820 umol/L; Total Hemoglobin (HGBA1C) 3507.7306 umol/L
[2025-03-16 10:59] LABS: Appearance Urine Clear; Glucose Urine UA Negative (Negative); PH 5.5 (5.0-9.0); Specific Gravity - Urine 1.020 (1.005-1.025)
[2025-03-16 11:22] LABS: Alanine Aminotransferase 90 U/L (0-31); Albumin Level 4.5 g/dL (3.5-5.0); Alkaline Phosphatase 116 U/L (39-117); Anion Gap 12 (12-20); Aspartate Amino Transferase 49 U/L (5-31); Blood Urea Nitrogen 8 mg/dL (9-16); Calcium 9.3 mg/dL (8.4-10.2); Carbon Dioxide 22 mmol/L (22-29); Chloride 108 mmol/L (96-108); Estimated Glomerular Filt Rate > 60; Iron 38 mcg/dL (30-160); Percent Iron Saturation 10 % (15-50); Potassium 4.3 mmol/L (3.3-5.1); Sodium 138 mmol/L (135-145); Total Iron Binding Capacity 383 mcg/dL (228-428); Total Protein 7.6 g/dL (6.5-8.0); Unsaturated Iron Binding 345 ug/dL
[2025-03-16 11:37] LABS: Syphilis Screen Nonreactive (Nonreactive)
[2025-03-16 12:14] LABS: HIV Num 1 0.06 S/CO (0.00-0.99)
[2025-03-16 12:24] LABS: CT PCR Urine NOT DETECTED (Not Detect.); NG PCR Urine NOT DETECTED (Not Detect.)
[2025-03-16 12:47] LABS: Folate 10.6 ng/mL (> or = 4.0); Vitamin B12 545 pg/mL (200-900)
[2025-03-20 16:04] LABS: Anti Nuclear Antibody Screen NEGATIVE (NEGATIVE)
== END 2025-03-16 09:34 | disposition home or self-care (01) ==
LOC: HO.LAB 09:33
DX: E66.01 Morbid (severe) obesity due to excess calories (principal); R12 Heartburn; K76.0 Fatty (change of) liver, not elsewhere classified; K44.9 Diaphragmatic hernia without obstruction or gangrene; N92.6 Irregular menstruation, unspecified; A60.04 Herpesviral vulvovaginitis; G43.901 Migraine, unspecified, not intractable, with status migrainosus; J45.40 Moderate persistent asthma, uncomplicated; R73.03 Prediabetes; D64.9 Anemia, unspecified; R53.83 Other fatigue
CPT/HCPCS: 80053; 81003; 82306; 82607; 82746; 83036; 83540; 84443; 85025; 85652; 86038; 86141; 86780; 87389; 87491; 87591

== ENCOUNTER 2025-03-18 08:58 | Outpatient (AMB) | payer OTHER, SELFPAY ==
--- OUTSIDE RECORDS SUMMARY | 2025-03-18 09:37 | XMS_ITS | Clinical Summary ---
Author Organization [facility] [place] Address [address] [place], [place] Phone Care Team Providers Care Educational Guidance Counselor Name Role Phone Concepción Clark MD Primary Care Provider [phone] Allergies No known active allergies Medications albuterol [...] Discussed and Confirmed with patient. Care Teams Educational Guidance Counselor Relationship Specialty Start Date End Date Concepción Clark MD [address] [place] [id number] PCP - General Internal Medicine 05/21/23
--- NOTE | 2025-03-18 13:44 | MHC.OFFVISWM ---
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 Allergies No Known Allergies Allergy (Verified 03/18/25 13:45) Medication List - Last Reconciled 03/18/25 by Kd Jordan MD albuterol sulfate 90 mcg/actuation 2 puffs inhalation Q6H PRN albuterol sulfate 90 mcg/actuation (Ventolin HFA) 2 puffs inhalation Q4-6H PRN budesonide-formoterol 160-4.5 mcg/actuation (Symbicort) 2 puffs inhalation BID cholecalciferol (vitamin D3) 50 mcg PO DAILY magnesium oxide 400 mg PO BEDTIME omeprazole 20 mg PO DAILY riboflavin (vitamin B2) 400 mg PO DAILY sumatriptan succinate take 1 tab at onset of headache; if no relief may repeat 1 tab after at least 2 hrs; max = 4 tabs/24 hr PO 30 days valacyclovir 500 mg PO BID 10 days HPI HPI 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: Details: Start time: 1.29pm, End time: 2.14pm ?I spent 40 minutes speaking with the patient on the phone plus an additional 5 minutes reviewing and updating records for a total of 45 minutes HPI Comments Details: Previous weight loss effort: self diet and exercise Wakes up: 8am, sleeps: 11pm Breakfast: 10am (boiled eggs with crackers) Lunch: skips Dinner: 6pm (rice, fries, pizza, chicken, pork chops) Snacks: twice before dinner (bread and cookies), once after dinner (cookies and fruit) Exercise: has home stationary bike Beverages: Namita donut Coffee: 3-4/wk, Tea: none, Soda: regular Sprite: 1/wk, Juice: none, ETOH: 1-2/wk (Sravani or Whiskey) [facility] Medical History (Updated 03/18/25 @ 13:49 by Kd Jordan MD) GERD (gastroesophageal reflux disease) Migraines Recurrent candidiasis of vagina Morbid obesity Fatty liver Asthma Hiatal hernia Genital herpes Prediabetes Surgical History H/O hand surgery Family History Maternal Grandmother Diabetes Father Heart attack Maternal Grandmother Hypertension Mother Asthma Paternal Grandmother Diabetes Social History Household Members: Family Both parents involved: No Caregiver staying overnight: No Housing: Apartment Alcohol intake: current Alcohol intake frequency: holidays/special occasions only Patient Tobacco Use Status: Current someday Tobacco user e-Cigarette/Vaping Use: Never Used Second Hand Smoke Exposure: No service: No Current occupational status: unemployed Current occupational exposures/hazards: No Cognitive needs: No Hearing needs: No Vision needs: No Telehealth Telehealth Telehealth Platform: Telephone Location of provider rendering services: practice address Location of patient: address on file Patient Identification confirmed using: Name, : Yes Telehealth method: voice only Patient verbally consented to treatment: Yes Patient verbally consented to billing insurance company: Yes Patient informed of any privacy concerns related to visit: Yes Minutes spent on Phone/Video with Pt.: 45 Assessment & Plan Assessment & Plan (1) Morbid obesity: Code(s): E66.01 - Morbid (severe) obesity due to excess calories Category: Medical Plan: 1.? Plan for lap sleeve gastrectomy. If diaphragmatic or ventral hernias are present at time of surgery, these will be repaired laparoscopically as well. I emphasized the importance of close follow-up, adherence to instructions and good communication. The surgery does not replace the need to change your lifestlyle which is the cause of the obesity problem. The surgery provides the motivation to try again to change your lifestyle, it reduces the appetite and make the transition to a better lifestyle easier and doubles the amount of weight you would lose compared to doing the lifestyle change without the surgery. You will need to be on a liquid diet with protein shakes for 2 weeks before surgery to maximize weight loss and boost your nutritional status to recover better from surgery and also for the first two weeks after surgery to let the stomach heal before we introduce other foods. After the first 2 weeks we will introduce protein bars and soft foods like scrambled eggs, cottage cheese and yogurt and after the 6th week will introduce meat, fish and cooked vegetables in small amounts. Over time you should be able to eat everything in small amounts. Side effects like nausea, vomiting, heartburn or abdominal pain are not common in the practice unless you are not following in the practice. This operation requires lifetime commitment to following in our practice and communication with me. You will much less weight and experience side effects if you don?t communicate or not following in the practice. Complications are rare and in our practice is about 1/10 of the national average. However, you can develop bleeding that may require transfusion (hasn?t happened for year in the practice), you may from complications (we did not have any deaths in the practice) and infections. Infections are usually a result of breakdown in communication or not understanding or following directions correctly. They are difficult to treat, they can happen during the first 6 weeks, they may require to be in the hospital for weeks or even months, not being able to eat by mouth and you may have drains and surgeries to try and correct the issue. Other risks and complications include possible conversion to an open procedure, leaks, small bowel obstruction, blood clots, cardiac, or pulmonary complications, as ad terminal makeup operator complications such as ulcers, insufficient weight loss and vitamin deficiencies. 2.?Nutritional counseling. Start with one premade PREMIER protein (buy at [employer] or [employer]) shake (mix 4oz of Premier mixed with 4oz low fat unsweetened almond milk each) at 9am-11am, one protein bar (Fit Crunch protein bar, buy at [employer], or [employer]) at 12pm-2pm, another premade PREMIER protein shake (mix 4oz of Premier mixed with 4oz low fat unsweetened almond milk each) at 3pm-5pm, dinner at 6pm (8 forks of protein and 8 forks of salad/vegetables) and another another Fit Crunch protein bar at 8pm-10pm So you do 2 protein shakes, 2 protein bars and one meal per day. Meal to include lean meat (beef, fish, pork, turkey, chicken), or romansh yogurt, or egg whites, or beans with a salad with olive oil and fruits (berries, pears, apples, kiwi). Avoid salt, breads, potatoes, rice, pasta, desserts. 3. Each shake would be drunk slowly, like coffee in a period of 2 hours. 4. Cut each bar in 4 pieces and eat each piece in 30min ?to make each bar last 2 hours. 5. I emphasized the importance of measuring accurately the food portion and measure it when serving the food in plate 6. The meal portions include 8 full-size forks of meat and 8 full-size forks of salad. You always eat the meat portion but you can replace up to 4 forks for salad/vegetables with rice, potatoes or pasta, or a fruit ?if you like. The less you do it the better weight loss will be. 7. One full-size fork is what it can be scooped on the fork without falling aside and not what can be bit with the fork. Use regular forks like those you find in a typical restaurant. 8.? Please buy the body composition scale we discussed and send me weight measurements as soon as possible and then once a week. Always include your diet and exercise plan. 9. Start stationary bike at a resistance level of 4.0 Increase level by 1.0 every 3 min to a max level of 10.0. Stay at this level for 3 min and then return to level 4.0 and repeat same steps until 300 calories are burned. Goal is to burn 2000 calories per week on exercise 10.?It is important of avoiding and for at least 18 months postoperatively and has been discussed at the infosession. 11. Goal is to lose at least 1.5-2lbs per week 12. Goal to lose 10% of your weight before surgery, which is about 24lbs. Ultimate weight goal: 213lbs before surgery 13. Please follow the diet plan exactly without any change. If you don't like something about the plan or you feel hungry you need to communicate with me so I can help you revise the plan. You should not change the plan yourself 14. To be scheduled for EGD to assess the stomach's anatomy. The possibility of biopsies was discussed. Patient needs to avoid use of NSAIDs and aspirin for 1 week prior to EGD. You must be on liquids only the day before your endoscopy. Risks of perforation and bleeding was discussed with the patient. This will be an outpatient procedure with IV sedation. 15. Please do the following test: Check your heart rate at rest (at your sleep). Walk for exactly one mile distance as fast as you can and check your heart rate again as soon as you complete the mile walk. Text me the heart rate at rest and after the walk and the time in minutes and seconds that took you to complete the mile walk. You can use your smartphone's stopwatch to track accurately the time it took to walk the mile. Orders: Orders Hemoglobin A1c Today E66.01 - Morbid (severe) obesity due to excess calories, E78.2 - Mixed hyperlipidemia, J45.40 - Moderate persistent asthma, uncomplicated, K21.9 - Gastro-esophageal reflux disease without esophagitis, K44.9 - Diaphragmatic hernia without obstruction or gangrene, K76.0 - Fatty (change of) liver, not elsewhere classified, R73.03 - Prediabetes Complete Blood Count Auto Diff Today E66.01 - Morbid (severe) obesity due to excess calories, E78.2 - Mixed hyperlipidemia, J45.40 - Moderate persistent asthma, uncomplicated, K21.9 - Gastro-esophageal reflux disease without esophagitis, K44.9 - Diaphragmatic hernia without obstruction or gangrene, K76.0 - Fatty (change of) liver, not elsewhere classified, R73.03 - Prediabetes Lipid Panel Today E66.01 - Morbid (severe) obesity due to excess calories, E78.2 - Mixed hyperlipidemia, J45.40 - Moderate persistent asthma, uncomplicated, K21.9 - Gastro-esophageal reflux disease without esophagitis, K44.9 - Diaphragmatic hernia without obstruction or gangrene, K76.0 - Fatty (change of) liver, not elsewhere classified, R73.03 - Prediabetes Comprehensive Met. Panel Today E66.01 - Morbid (severe) obesity due to excess calories, E78.2 - Mixed hyperlipidemia, J45.40 - Moderate persistent asthma, uncomplicated, K21.9 - Gastro-esophageal reflux disease without esophagitis, K44.9 - Diaphragmatic hernia without obstruction or gangrene, K76.0 - Fatty (change of) liver, not elsewhere classified, R73.03 - Prediabetes Zinc Today E66.01 - Morbid (severe) obesity due to excess calories, E78.2 - Mixed hyperlipidemia, J45.40 - Moderate persistent asthma, uncomplicated, K21.9 - Gastro-esophageal reflux disease without esophagitis, K44.9 - Diaphragmatic hernia without obstruction or gangrene, K76.0 - Fatty (change of) liver, not elsewhere classified, R73.03 - Prediabetes Vitamin B1 Today E66.01 - Morbid (severe) obesity due to excess calories, E78.2 - Mixed hyperlipidemia, J45.40 - Moderate persistent asthma, uncomplicated, K21.9 - Gastro-esophageal reflux disease without esophagitis, K44.9 - Diaphragmatic hernia without obstruction or gangrene, K76.0 - Fatty (change of) liver, not elsewhere classified, R73.03 - Prediabetes TSH reflex Free T4 Today E66.01 - Morbid (severe) obesity due to excess calories, E78.2 - Mixed hyperlipidemia, J45.40 - Moderate persistent asthma, uncomplicated, K21.9 - Gastro-esophageal reflux disease without esophagitis, K44.9 - Diaphragmatic hernia without obstruction or gangrene, K76.0 - Fatty (change of) liver, not elsewhere classified, R73.03 - Prediabetes Ferritin Today E66.01 - Morbid (severe) obesity due to excess calories, E78.2 - Mixed hyperlipidemia, J45.40 - Moderate persistent asthma, uncomplicated, K21.9 - Gastro-esophageal reflux disease without esophagitis, K44.9 - Diaphragmatic hernia without obstruction or gangrene, K76.0 - Fatty (change of) liver, not elsewhere classified, R73.03 - Prediabetes ECG 12 lead EKG Today E66.01 - Morbid (severe) obesity due to excess calories, E78.2 - Mixed hyperlipidemia, J45.40 - Moderate persistent asthma, uncomplicated, K21.9 - Gastro-esophageal reflux disease without esophagitis, K44.9 - Diaphragmatic hernia without obstruction or gangrene, K76.0 - Fatty (change of) liver, not elsewhere classified, R73.03 - Prediabetes FL upper GI w air Today E66.01 - Morbid (severe) obesity due to excess calories, E78.2 - Mixed hyperlipidemia, J45.40 - Moderate persistent asthma, uncomplicated, K21.9 - Gastro-esophageal reflux disease without esophagitis, K44.9 - Diaphragmatic hernia without obstruction or gangrene, K76.0 - Fatty (change of) liver, not elsewhere classified, R73.03 - Prediabetes Insulin Today E66.01 - Morbid (severe) obesity due to excess calories, E78.2 - Mixed hyperlipidemia, J45.40 - Moderate persistent asthma, uncomplicated, K21.9 - Gastro-esophageal reflux disease without esophagitis, K44.9 - Diaphragmatic hernia without obstruction or gangrene, K76.0 - Fatty (change of) liver, not elsewhere classified, R73.03 - Prediabetes H Pylori Breath Test Today E66.01 - Morbid (severe) obesity due to excess calories, E78.2 - Mixed hyperlipidemia, J45.40 - Moderate persistent asthma, uncomplicated, K21.9 - Gastro-esophageal reflux disease without esophagitis, K44.9 - Diaphragmatic hernia without obstruction or gangrene, K76.0 - Fatty (change of) liver, not elsewhere classified, R73.03 - Prediabetes IRON PROFILE Today E66.01 - Morbid (severe) obesity due to excess calories, E78.2 - Mixed hyperlipidemia, J45.40 - Moderate persistent asthma, uncomplicated, K21.9 - Gastro-esophageal reflux disease without esophagitis, K44.9 - Diaphragmatic hernia without obstruction or gangrene, K76.0 - Fatty (change of) liver, not elsewhere classified, R73.03 - Prediabetes Vitamin B12 and Folate Today E66.01 - Morbid (severe) obesity due to excess calories, E78.2 - Mixed hyperlipidemia, J45.40 - Moderate persistent asthma, uncomplicated, K21.9 - Gastro-esophageal reflux disease without esophagitis, K44.9 - Diaphragmatic hernia without obstruction or gangrene, K76.0 - Fatty (change of) liver, not elsewhere classified, R73.03 - Prediabetes C Reactive Protein Today E66.01 - Morbid (severe) obesity due to excess calories, E78.2 - Mixed hyperlipidemia, J45.40 - Moderate persistent asthma, uncomplicated, K21.9 - Gastro-esophageal reflux disease without esophagitis, K44.9 - Diaphragmatic hernia without obstruction or gangrene, K76.0 - Fatty (change of) liver, not elsewhere classified, R73.03 - Prediabetes Vitamin A Today E66.01 - Morbid (severe) obesity due to excess calories, E78.2 - Mixed hyperlipidemia, J45.40 - Moderate persistent asthma, uncomplicated, K21.9 - Gastro-esophageal reflux disease without esophagitis, K44.9 - Diaphragmatic hernia without obstruction or gangrene, K76.0 - Fatty (change of) liver, not elsewhere classified, R73.03 - Prediabetes Vitamin D 25-OH Total Today E66.01 - Morbid (severe) obesity due to excess calories, E78.2 - Mixed hyperlipidemia, J45.40 - Moderate persistent asthma, uncomplicated, K21.9 - Gastro-esophageal reflux disease without esophagitis, K44.9 - Diaphragmatic hernia without obstruction or gangrene, K76.0 - Fatty (change of) liver, not elsewhere classified, R73.03 - Prediabetes US abdomen comp w elastography Today E66.01 - Morbid (severe) obesity due to excess calories, E78.2 - Mixed hyperlipidemia, J45.40 - Moderate persistent asthma, uncomplicated, K21.9 - Gastro-esophageal reflux disease without esophagitis, K44.9 - Diaphragmatic hernia without obstruction or gangrene, K76.0 - Fatty (change of) liver, not elsewhere classified, R73.03 - Prediabetes XR chest 2V Today E66.01 - Morbid (severe) obesity due to excess calories, E78.2 - Mixed hyperlipidemia, J45.40 - Moderate persistent asthma, uncomplicated, K21.9 - Gastro-esophageal reflux disease without esophagitis, K44.9 - Diaphragmatic hernia without obstruction or gangrene, K76.0 - Fatty (change of) liver, not elsewhere classified, R73.03 - Prediabetes Referrals Behavioral Health Referral E66.01 - Morbid (severe) obesity due to excess calories, E78.2 - Mixed hyperlipidemia, J45.40 - Moderate persistent asthma, uncomplicated, K21.9 - Gastro-esophageal reflux disease without esophagitis, K44.9 - Diaphragmatic hernia without obstruction or gangrene, K76.0 - Fatty (change of) liver, not elsewhere classified, R73.03 - Prediabetes Nutrition/Dietitian Referral E66.01 - Morbid (severe) obesity due to excess calories, E78.2 - Mixed hyperlipidemia, J45.40 - Moderate persistent asthma, uncomplicated, K21.9 - Gastro-esophageal reflux disease without esophagitis, K44.9 - Diaphragmatic hernia without obstruction or gangrene, K76.0 - Fatty (change of) liver, not elsewhere classified, R73.03 - Prediabetes
[2025-03-18 13:54] VITALS: BMI 44.1
== END 2025-03-18 14:14 | disposition home or self-care (01) ==
LOC: HO.HBS 08:58
PROVIDERS: Visit Provider Surgery
DX: E66.01 Morbid (severe) obesity due to excess calories (principal)
CPT/HCPCS: 99204

== ENCOUNTER 2025-04-10 11:09 | Outpatient (AMB) | payer OTHER, SELFPAY ==
--- NOTE | 2025-04-10 11:05 | A.OFFWM_ITS ---
Intake Intake Visit Reasons: VIDEO BH Intake Allergies No Known Allergies Allergy (Verified 03/18/25 13:45) [facility] Medical History (Updated 03/18/25 @ 13:49 by Kd Jordan MD) GERD (gastroesophageal reflux disease) Migraines Recurrent candidiasis of vagina Morbid obesity Fatty liver Asthma Hiatal hernia Genital herpes Prediabetes Surgical History H/O hand surgery Family History Maternal Grandmother Diabetes Father Heart attack Maternal Grandmother Hypertension Mother Asthma Paternal Grandmother Diabetes Social History Household Members: Family Housing: Apartment Alcohol intake: current Alcohol intake frequency: holidays/special occasions only Patient Tobacco Use Status: Current someday Tobacco user e-Cigarette/Vaping Use: Never Used Second Hand Smoke Exposure: No service: No Current occupational status: unemployed Current occupational exposures/hazards: No Cognitive needs: No Hearing needs: No Vision needs: No Behavioral Health Assessment Weight Management Therapy Therapy Notes Details The patient is a 29-year-old female presenting for an initial visit to start the behavioral health assessment as part of a surgical weight loss program. She was referred by her primary care provider due to obesity and prediabetes, with a history of unsuccessful weight loss attempts. Presenting Concerns Referral Source WMP-Provider. Reason for referral Completion of behavioral health assessment as part of process for weight-loss surgery. Precipitating Event Obesity. Living Situation Current Living Situation Relative's/Guardian's Fernandez At risk of losing current housing? No Satisfied with current living situation? Yes Comments Pt lives at her aunt and uncle. She lives there with them and her 6 year old daughter. Food/Weight/Diet Expectations of change PT started the program on 03/18/25 at 237 lbs, and the Initial goal is to lose 10% of her weight before surgery, which is approximately 24lbs. Ultimate weight goal: 213lbs before surgery. PT would like to be at a healthy weight and have a healthier lifestyle. PT is implementing the following: Current meal plan: 2 protein shakes, 2 protein bars, and one meal per day. Exercise plan: Treadmill and bike, 4-5 days a week, trying to burn 350Cal-each time. Scale: yes. Communication with provider: . Social History Family history and relationship PT is 1 year, but they have been together for about 3 years; they don't have kids together, PT has a daughter from a previous relationship. Mother alive, father . She has 3 siblings on her mom's side and 2 on her father's side. She currently lives at her maternal uncle's house as she relocated to [place] 6 months ago from living in [place]. Pt reports good family relationships. 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 Community support PCP Muslim/Spirituality None. Cultural/Ethnic information [place] was [place] was raised in [place]. She is , and her parents are from [place]. PT is mainly Andorran-speaking. Legal Involvement and History Current or historical involvement with the legal system? None reported. Education Highest grade completed 9th grade. Preferred learning style Visual Currently enrolled in educational program? No Interested in further educational program? 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 Employment Employment Status Unemployed (6 months.) Wants help to find employment? No (Actively looking for a job.) Meaningful activities Family activities, watch TV. Financial Situation Describe current financial situation Comfortable Financial assistance? None Service Service? No Mental Health and Addiction Treatment Current/Past substance abuse? No Comments Alcohol: before starting the program, 1x week, 10 drinks - Currently 1-2 month 2 drinks. Cigarettes/Tobacco: None. Cannabis/Edibles: None. Current/Past addictive behavior concerns? No Psychiatric history PT reports she was in counseling in childhood due to behavior issues, but has not been in counseling or any other type of MH treatment since age 11. PT denies ever being in crisis or hospitalized for mental health, also denies any safety concerns around self-harm or other-harm. Medical and Physical Health Summary Additional Medical History not covered in history None aditional Sexual History concerns None reported. Physical exam in the last year? Yes Pain Screening Current pain? Yes (headaches.) Pain in the last few months? Yes Comments Headaches and back pain. Medications Is the patient compliant with medications? Yes Does the patient have Parra Guardian in place? Not applicable Does the patient use complimentary health approaches? No Trauma/Abuse History History of trauma? No (MARIEL score: 1 - parents separation.) Questionnaires PHQ-9 Over the last 2 weeks, how often have you been bothered by any of the following problems? 1. Little interest or pleasure in doing things: more than half the days 2. Feeling down, depressed, or hopeless: more than half the days 3. Trouble falling or staying asleep, or sleeping too much: nearly every day 4. Feeling tired or having little energy: nearly every day 5. Poor appetite or overeating: nearly every day 6. Feeling bad about yourself - or that you are a failure or have let yourself or your family down: more than half the days 7. Trouble concentrating on things, such as reading the newspaper or watching television: nearly every day 8. Moving or speaking so slowly that other people could have noticed. Or the opposite - being so fidgety or restless that you have been moving around a lot more than usual: several days 9. Thoughts that you would be better off or of hurting yourself in some way: not at all Total score: 19 Depression Screening Interpretation: Positive (From new Pt pack administered on 02/22/25. New one will be administered at next visit. ) Depression Screening Done: Yes Source: Developed by Drs. Ankit Colón, Alessandra Espinoza, Wesley Ferraro and colleagues, with an educational iban from [employer]. Binge Eating Scale Group 1 A. I don't feel self-conscious about my wt. or body size when I'm with others. B. I feel concerned about how I look to others, but it normally does not make me fell disappointed with myself C. I do get self-conscious about my appearance and wt. which makes me feel disappointed in myself. D. I feel very self-conscious about my wt. and frequently I feel intense shame and disgust for myself. I try to avoid social contacts because of my self- consciousness. Response Group 1: D Group 2 A. I don't have any difficulty eating slowly in the proper manner. B. Although I seem to gobble down foods, I don't end up feeling stuffed because of eating to much. C. At times, I tend to eat quickly and then, I feel uncomfortably full afterwards. D. I have the habit of bolting down my food, without really chewing it. When this happens I usually feel uncomfortably stuffed because I've eaten to much. Response Group 2: D Group 3 A. I feel capable to control my eating urges when I want to. B. I feel like I have failed to control my eating more than the average person. C. I feel utterly helpless when it comes to feeling in control of my eating urges. D. Because I feel so helpless about controlling my eating I have become very desperate about trying to get control. Response Group 3: C Group 4 A. I don't have the habit of eating when I'm bored. B. I sometimes eat when I'm bored, but often I'm able to get busy and get my mind off food. C. I have a regular habit of eating when I'm bored, but occasionally, I can use some other activity to get my mind off eating. D. I have a strong habit of eating when I'm bored. Nothing seems to help me b reath the habit. Response Group 4: D Group 5 A. I'm usually physically hungry when I eat something. B. Occasionally, I eat something on impulse even though I really am not hungry. C. I have the regular habit of eating foods, that I might not really enjoy, to satisfy a hungry feeling even though physically, I don't need the food. D. Although I'm not physically hungry, I get a hungry feeling in my mouth that only seems to be satisfied when I eat a food, like sandwich, that fills my mouth. Sometimes, when I eat the food to satisfy my mouth hunger, I then spit the food out so I won't gain weight. Response Group 5: C Group 6 A. I don't feel any guilt or self-hate after I overeat. B. After I overeat, occasionally I feel guilt or self-hate. C. Almost all the time I experience strong guilt or self-hate after I overeat. Response Group 6: B Group 7 A. I don't lose total control of my eating when dieting even after periods when I overeat. B. Sometimes when I eat a forbidden food on a diet, I feel like I blew it and eat even more. C. Frequently, I have the habit of saying to myself, I've blown it now, why not go all the way, when I overeat on a diet. When that happens I eat more. D. I have a regular habit of starting a strict diets for myself but I break the diets by going on an eating binge. My life seems to be either a feast or famine. Response Group 7: D Group 8 A. I rarely eat so much food that I feel uncomfortably stuffed afterwards. B. Usually about once a month, I each such a quantity of food, I end up feeling very stuffed. C. I have regular periods during the month when I eat large amounts of food, either at mealtime or at snacks. D. I eat so much food that I regularly feel quite uncomfortable after eating and sometimes a bit nauseous. Response Group 8: D Group 9 A. My level of calorie intake does not go up very high or go down very low on a regular basis. B. Sometimes after I overeat, I will try to reduce my caloric intake to almost nothing to compensate for the excess calories I've eaten. C. I have a regular habit of overeating during the night. It seems that my routine is not to be hungry in the morning but overeat in the evening. D. In my adult years, I have had week-long periods where I practically starve myself. This follows periods when I overeat. It seems I live a life of either feast or famine. Response Group 9: C Group 10 A. I usually am able to stop eating when I want to. I know when enough is enough. B. Every so often, I experience a compulsion to eat which I can't seem to control. C. Frequently, I experience strong urges to eat which I seem unable to control, but at other times I can control my eating urges. D. I feel incapable of controlling urges to eat. I have a fear of not being able to stop eating voluntarily. Response Group 10: D Group 11 A. I don't have any problem stopping eating when I feel full. B. I usually can stop eating when I feel full but occasionally overeat leaving me feeling uncomfortably stuffed. C. I have a problem stopping eating once I start and usually I feel uncomfortably stuffed after I eat a meal. D. Because I have a problem not being able to stop eating when I want, I sometimes have to induce vomiting to relieve my stuffed feeling. Response Group 11: B Group 12 A. I seem to eat just as much when I'm with others, Family social gatherings as when I'm by myself. B. Sometimes, when I'm with other persons, I don't eat as much as I want to eat because I'm self-conscious about my eating. C. Frequently, I eat only a small amount of food when others are present, because I'm very embarrassed about my eating. D. I feel so ashamed about overeating that I pick times to overeat when I know no one will see me. I feel like a closet eater. Response Group 12: A Group 13 A. I eat three meals a day with only an occasional between meal snack. B. I eat 3 meals a day, but I also normally snack between meals. C. When I am snacking heavily, I get in the habit of skipping regular meals. D. There are regular periods when I seem to be continually eating, with no planned meals. Response Group 13: B Group 14 A. I don't think much about trying to control unwanted eating urges. B. At least some of the time, I feel my thoughts are pre-occupied with trying to control my eating urges. C. I feel that frequently I spend much time thinking about how much I ate or about trying not to eat anymore. D. It seems to me that most of my waking hours are pre-occupied by thoughts about eating or not eating. I feel like I'm constantly struggling not to eat. Response Group 14: B Group 15 A. I don't think about food a great deal. B. I have strong craving for food but they last only for brief periods of time. C. I have days when I can't seem to think about anything else but food. D. Most of my days seem to be pre-occupied with thoughts about food. I feel like I live to eat. Response Group 15: C Group 16 A. I usually know whether or not I'm physically hungry. I take the right portion of food to satisfy me. B. Occasionally, I feel uncertain about knowing whether or not I'm physically hungry. A these times it's hard to know how much food I should take to satisfy me. C. Even though I might know how many calories I should eat, I don't have any idea what is a normal amount of food for me. Response Group 16: B Binge Eating Score: 31 Score less than 17 Minimal Risk Score between 18-26 Moderate Risk Score between 27-46 High Risk Assessment & Plan Assessment & Plan (1) Adjustment disorder: Code(s): F43.20 - Adjustment disorder, unspecified Qualifiers: Adjustment disorder type: unspecified type Qualified Code(s): F43.20 - Adjustment disorder, unspecified (2) Inappropriate diet or eating habits: Code(s): Z72.4 - Inappropriate diet and eating habits (3) Pre-bariatric surgery psychological evaluation: Code(s): Z71.89 - Other specified counseling Plan The patient was not cleared today as the assessment was not completed. The patient will return in 2 weeks to continue the evaluation. Next appointment: 04/23/25 at 11am, video. Telehealth Telehealth Telehealth Platform: [employer] Location of provider rendering services: other (Home office. [place], [place]) Location of patient: address on file Patient Identification confirmed using: Name, : Yes Telehealth method: video Patient verbally consented to treatment: Yes Patient verbally consented to billing insurance company: Yes Patient informed of any privacy concerns related to visit: Yes Minutes spent on Phone/Video with Pt.: 50 Coding Level of Care Code New Pt Tele Psy Diag Ramon ([id number]) Patient Type New Diagnoses Adjustment disorder, unspecified type F43.20 Adjustment disorder type: unspecified type Inappropriate diet or eating habits Z72.4 Pre-bariatric surgery psychological evaluation Z71.89 Time Spent (min) 50
--- OUTSIDE RECORDS SUMMARY | 2025-04-10 14:23 | XMS_ITS | Clinical Summary ---
Author Organization [facility] [place] Address [address] [place], [place] Phone Care Team Providers Care Lag Screwer Name Role Phone Concepción Clark MD Primary Care Provider [phone] Allergies No known active allergies Medications albuterol [...] 04/28/2022 Social Influencers of Health Screening 04/28/2022 Depression Screening 07/25/2024 COVID-19 Vaccine ( - season) 2025 05/29/2021, 05/01/2021 Influenza Vaccine (#1) 2025 , 07/01/2023, 08/01/2018, [...] Discussed and Confirmed with patient. Care Teams Lag Screwer Relationship Specialty Start Date End Date Concepción Clark MD [address] [place] [id number] PCP - General Internal Medicine 05/21/23
== END 2025-04-10 11:48 | disposition home or self-care (01) ==
LOC: HO.HBST 11:09
PROVIDERS: Visit Provider Counselor Mental Health
DX: F43.20 Adjustment disorder, unspecified (principal); Z72.4 Inappropriate diet and eating habits; Z71.89 Other specified counseling
CPT/HCPCS: 90791

== ENCOUNTER 2025-04-11 07:08 | Outpatient (REF) | payer OTHER, SELFPAY ==
--- NOTE | ~2025-04-11 | XR_ITS ---
EXAMINATION: XR CHEST CLINICAL INFORMATION: E66.01 - Morbid (severe) obesity due to excess calories COMPARISON: None available. TECHNIQUE: PA and lateral views FINDINGS: No consolidation, pleural effusion or pneumothorax. Cardiomediastinal silhouette size is normal. No hyperinflation. Mild multilevel thoracic spondylosis. XR/XR chest 2V IMPRESSION: No acute airspace disease. Electronically signed by: Kai Henao MD 04/11/2025 08:12 AM EDT
--- OUTSIDE RECORDS SUMMARY | 2025-04-11 07:11 | XMS_ITS | Clinical Summary ---
Author Organization [facility] [place] Address [address] [place], [place] Phone Care Team Providers Care Pharmaceutical Compounding Supervisor Name Role Phone Concepción Clark MD Primary Care Provider [phone] Allergies No known active allergies Medications albuterol [...] Discussed and Confirmed with patient. Care Teams Pharmaceutical Compounding Supervisor Relationship Specialty Start Date End Date Concepción Clark MD [address] [place] [id number] PCP - General Internal Medicine 05/21/23
[2025-04-11 07:23] LABS: MANUAL DIFF FLAG NO
[2025-04-11 07:44] LABS: Hematocrit 39.4 % (37.0-47.0); Hemoglobin 12.7 g/dl (12.0-16.0); Imm Gran Abs Auto 0.01 X10*3/uL (0.00-0.03); Imm Gran Pct Auto 0.1 % (0.0-0.4); Lymphocytes Absolute Auto 3.6 X10*3/uL (1.2-4.9); Mean Corpuscular HGB Conc 32.2 g/dl (31.0-35.0); Mean Corpuscular Hemoglobin 25.5 pg (27.0-33.0); Mean Corpuscular Volume 79.1 fL (80.0-98.0); NRBC Abs Auto 0.000 X10*3/uL (0.0-0.012); NRBC Pct Auto 0.0 /100WBC (0.0-0.2); Platelet Count 315 X10*3/uL (160-400); Red Blood Count 4.98 X10*6/uL (4.20-5.50); White Blood Count 9.0 X10*3/uL (4.8-10.8)
--- NOTE | 2025-04-11 07:49 | ECG_ITS ---
Test Reason : MOR OBESITY Blood Pressure : */* mmHG Vent. Rate : 72 BPM Atrial Rate : 72 BPM P-R Int : 160 ms QRS Dur : 76 ms QT Int : 408 ms P-R-T Axes : 50 60 17 degrees QTcB Int : 446 ms Normal sinus rhythm Normal ECG No previous ECGs available Referred By: Kd Jordan Electronically Signed By: VICKI BAKER
[2025-04-11 09:05] LABS: Anion Gap 11 (12-20)
[2025-04-11 09:09] LABS: Alanine Aminotransferase 59 U/L (0-31); Albumin Level 4.6 g/dL (3.5-5.0); Alkaline Phosphatase 99 U/L (39-117); Aspartate Amino Transferase 34 U/L (5-31); Blood Urea Nitrogen 18 mg/dL (9-16); Calcium 9.4 mg/dL (8.4-10.2); Carbon Dioxide 22 mmol/L (22-29); Chloride 109 mmol/L (96-108); Cholesterol 160 mg/dL (<200); Estimated Glomerular Filt Rate > 60; HDL Cholesterol 35 mg/dL (>40); Iron 31 mcg/dL (30-160); Percent Iron Saturation 8 % (15-50); Potassium 4.0 mmol/L (3.3-5.1); Sodium 138 mmol/L (135-145); Total Iron Binding Capacity 383 mcg/dL (228-428); Total Protein 7.5 g/dL (6.5-8.0); Triglycerides 252 mg/dL (<150); Unsaturated Iron Binding 352 ug/dL
[2025-04-11 09:13] LABS: Folate 12.0 ng/mL (> or = 4.0); Vitamin B12 566 pg/mL (200-900)
[2025-04-11 09:14] LABS: Ferritin 30 ng/mL (10-122)
[2025-04-11 09:24] LABS: Hemoglobin A1C 131.3464 umol/L; Total Hemoglobin (HGBA1C) 3352.5804 umol/L
== END 2025-04-11 07:09 | disposition home or self-care (01) ==
LOC: HO.XRAY 07:08
PROVIDERS: Visit Provider Surgery
DX: R73.03 Prediabetes (principal); E78.2 Mixed hyperlipidemia; K21.9 Gastro-esophageal reflux disease without esophagitis; K76.0 Fatty (change of) liver, not elsewhere classified; K44.9 Diaphragmatic hernia without obstruction or gangrene; J45.40 Moderate persistent asthma, uncomplicated; E66.01 Morbid (severe) obesity due to excess calories
CPT/HCPCS: 36415; 71046; 80053; 80061; 82306; 82607; 82728; 82746; 83036; 83525; 83540; 84425; 84443; 84590; 84630; 85025; 86140; 93005

== ENCOUNTER → 2025-04-11 07:24 | Outpatient (BNV) | payer OTHER, SELFPAY | PROVIDERS: Visit Provider Radiology Diagnostic Radiology | DX: E66.01 Morbid (severe) obesity due to excess calories (principal) | CPT/HCPCS: 71046 ==

== ENCOUNTER → 2025-04-11 07:49 | Outpatient (BNV) | payer OTHER, SELFPAY | PROVIDERS: Visit Provider Internal Medicine | DX: E66.01 Morbid (severe) obesity due to excess calories (principal) | CPT/HCPCS: 93010 ==

== ENCOUNTER 2025-04-23 11:14 | Outpatient (AMB) | payer OTHER, SELFPAY ==
--- NOTE | 2025-04-23 11:05 | MHC.WMTHER ---
Intake Intake Visit Reasons: VIDEO Intake Part 2 Allergies No Known Allergies Allergy (Verified 03/18/25 13:45) [facility] Medical History (Updated 03/18/25 @ 13:49 by Kd Jordan MD) GERD (gastroesophageal reflux disease) Migraines Recurrent candidiasis of vagina Morbid obesity Fatty liver Asthma Hiatal hernia Genital herpes Prediabetes Surgical History H/O hand surgery Family History Maternal Grandmother Diabetes Father Heart attack Maternal Grandmother Hypertension Mother Asthma Paternal Grandmother Diabetes Social History Household Members: Family Both parents involved: No Caregiver staying overnight: No Housing: Apartment Alcohol intake: current Alcohol intake frequency: holidays/special occasions only Patient Tobacco Use Status: Current someday Tobacco user e-Cigarette/Vaping Use: Never Used Second Hand Smoke Exposure: No service: No Current occupational status: unemployed Current occupational exposures/hazards: No Cognitive needs: No Hearing needs: No Vision needs: No Behavioral Health Assessment Weight Management Therapy Therapy Notes Details The patient is a 29-year-old female presenting for an second visit to finish the behavioral health assessment as part of a surgical weight loss program. She was initially referred by her primary care provider due to obesity and prediabetes, with a history of unsuccessful weight loss attempts. Presenting Concerns Referral Source WMP-Provider. Reason for referral Completion of behavioral health assessment as part of process for weight-loss surgery. Precipitating Event Obesity. Living Situation Current Living Situation Relative's/Guardian's Fernandez At risk of losing current housing? No Satisfied with current living situation? Yes Comments Pt lives at her aunt and uncle. She lives there with them and her 6 year old daughter. Food/Weight/Diet Expectations of change PT started the program on 03/18/25 at 237 lbs, and the Initial goal is to lose 10% of her weight before surgery, which is approximately 24lbs. Ultimate weight goal: 213lbs before surgery. PT would like to be at a healthy weight and have a healthier lifestyle. PT reports a recent weight of 232Lbs as of 04/18/2025. PT is implementing the following: Current meal plan: 2 protein shakes, 2 protein bars, and one meal per day. Exercise plan: Treadmill and bike, 4-5 days a week, trying to burn 350Cal-each time. Scale: yes. Communication with provider: . History/Relationship with food PT reports she is used to eat big portions and at times would eat even if not hungry. In the last years she would eat out a lot and mainly fast food, also engaged in boredom-eating. Most of time times she would have 2 meals at day and multiple snacks at day. Example of meals before starting the program: Breakfast: 10am (boiled/scramble eggs with crackers) Lunch: skips Dinner: 6pm (rice, fries, pizza, chicken, pork chops) Snacks: twice before dinner (bread and cookies), once after dinner (cookies and fruit) Beverages: Namita donut Coffee: 3-4/wk, Tea: none, Soda: regular Sprite: 1/wk, Juice: none, ETOH: 1-2/wk (Sravani or Whiskey). History/Relationship with weight PT reports she has been obese since childhood. At age 14 she was around 160Lbs. In the last 10 years, the patient's Lowest weight was 170Lbs and highest 260Lbs. History/Relationship with dieting Self-diets, OTC pills, gym membership. Binge Eating Do you frequently eat large amounts of food in short periods of time, not feeling physically hungry? Yes Do you feel out of control when you eat a large amount of food in a short period of time? Yes Do you eat large amounts of food rapidly and typically alone? No Night Eating Do you wake up at least once during the night to eat? No If you wake up in the night, do you find that it is necessary to eat something in order to fall back asleep? No Do you have little or no appetite in the morning and feel very hungry in the evening, often overeating between dinner and when you go to bed? Yes Social History Family history and relationship PT is 1 year, but they have been together for about 3 years; they don't have kids together, PT has a daughter from a previous relationship. Mother alive, father . She has 3 siblings on her mom's side and 2 on her father's side. She currently lives at her maternal uncle's house as she relocated to [place] 6 months ago from living in [place]. Pt reports good family relationships. 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 Community support PCP Catholic/Spirituality None. Cultural/Ethnic information PT was born in [place] by was raised in [place]. She is , and her parents are from [place]. PT is mainly Sudanese-speaking. Legal Involvement and History Current or historical involvement with the legal system? None reported. Education Highest grade completed 9th grade. Preferred learning style Visual Currently enrolled in educational program? No Interested in further educational program? 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 Employment Employment Status Unemployed (6 months.) Wants help to find employment? No (Actively looking for a job.) Meaningful activities Family activities, watch TV. Financial Situation Describe current financial situation Comfortable Financial assistance? None Service Service? No Mental Health and Addiction Treatment Current/Past substance abuse? No Comments Alcohol: before starting the program, 1x week, 10 drinks - Currently 1-2 month 2 drinks. Cigarettes/Tobacco: None. Cannabis/Edibles: None. Current/Past addictive behavior concerns? No Psychiatric history PT reports she was in counseling in childhood due to behavior issues, but has not been in counseling or any other type of MH treatment since age 11. PT denies ever being in crisis or hospitalized for mental health, also denies any safety concerns around self-harm or other-harm. Medical and Physical Health Summary Additional Medical History not covered in history None aditional Sexual History concerns None reported. Physical exam in the last year? Yes Pain Screening Current pain? Yes (headaches.) Pain in the last few months? Yes Comments Headaches and back pain. Medications Is the patient compliant with medications? Yes Does the patient have Parra Guardian in place? Not applicable Does the patient use complimentary health approaches? No Trauma/Abuse History History of trauma? No (MARIEL score: 1 - parents separation.) Questionnaires PHQ-9 Over the last 2 weeks, how often have you been bothered by any of the following problems? 1. Little interest or pleasure in doing things: not at all 2. Feeling down, depressed, or hopeless: not at all 3. Trouble falling or staying asleep, or sleeping too much: several days (sleeping too much) 4. Feeling tired or having little energy: several days 5. Poor appetite or overeating: not at all 6. Feeling bad about yourself - or that you are a failure or have let yourself or your family down: not at all 7. Trouble concentrating on things, such as reading the newspaper or watching television: not at all 8. Moving or speaking so slowly that other people could have noticed. Or the opposite - being so fidgety or restless that you have been moving around a lot more than usual: not at all 9. Thoughts that you would be better off or of hurting yourself in some way: not at all Total score: 2 Depression Screening Interpretation: Negative Depression Screening Done: Yes 16331 - PHQ-9 Billing: Yes Source: Developed by Drs. Ankit Colón, Alessandra Espinoza, Wesley Ferraro and colleagues, with an educational iban from [employer]. Binge Eating Scale Group 1 A. I don't feel self-conscious about my wt. or body size when I'm with others. B. I feel concerned about how I look to others, but it normally does not make me fell disappointed with myself C. I do get self-conscious about my appearance and wt. which makes me feel disappointed in myself. D. I feel very self-conscious about my wt. and frequently I feel intense shame and disgust for myself. I try to avoid social contacts because of my self-consciousness. Response Group 1: D Group 2 A. I don't have any difficulty eating slowly in the proper manner. B. Although I seem to gobble down foods, I don't end up feeling stuffed because of eating to much. C. At times, I tend to eat quickly and then, I feel uncomfortably full afterwards. D. I have the habit of bolting down my food, without really chewing it. When this happens I usually feel uncomfortably stuffed because I've eaten to much. Response Group 2: D Group 3 A. I feel capable to control my eating urges when I want to. B. I feel like I have failed to control my eating more than the average person. C. I feel utterly helpless when it comes to feeling in control of my eating urges. D. Because I feel so helpless about controlling my eating I have become very desperate about trying to get control. Response Group 3: C Group 4 A. I don't have the habit of eating when I'm bored. B. I sometimes eat when I'm bored, but often I'm able to get busy and get my mind off food. C. I have a regular habit of eating when I'm bored, but occasionally, I can use some other activity to get my mind off eating. D. I have a strong habit of eating when I'm bored. Nothing seems to help me breath the habit. Response Group 4: D Group 5 A. I'm usually physically hungry when I eat something. B. Occasionally, I eat something on impulse even though I really am not hungry. C. I have the regular habit of eating foods, that I might not really enjoy, to satisfy a hungry feeling even though physically, I don't need the food. D. Although I'm not physically hungry, I get a hungry feeling in my mouth that only seems to be satisfied when I eat a food, like sandwich, that fills my mouth. Sometimes, when I eat the food to satisfy my mouth hunger, I then spit the food out so I won't gain weight. Response Group 5: C Group 6 A. I don't feel any guilt or self-hate after I overeat. B. After I overeat, occasionally I feel guilt or self-hate. C. Almost all the time I experience strong guilt or self-hate after I overeat. Response Group 6: B Group 7 A. I don't lose total control of my eating when dieting even after periods when I overeat. B. Sometimes when I eat a forbidden food on a diet, I feel like I blew it and eat even more. C. Frequently, I have the habit of saying to myself, I've blown it now, why not go all the way, when I overeat on a diet. When that happens I eat more. D. I have a regular habit of starting a strict diets for myself but I break the diets by going on an eating binge. My life seems to be either a feast or famine. Response Group 7: D Group 8 A. I rarely eat so much food that I feel uncomfortably stuffed afterwards. B. Usually about once a month, I each such a quantity of food, I end up feeling very stuffed. C. I have regular periods during the month when I eat large amounts of food, either at mealtime or at snacks. D. I eat so much food that I regularly feel quite uncomfortable after eating and sometimes a bit nauseous. Response Group 8: D Group 9 A. My level of calorie intake does not go up very high or go down very low on a regular basis. B. Sometimes after I overeat, I will try to reduce my caloric intake to almost nothing to compensate for the excess calories I've eaten. C. I have a regular habit of overeating during the night. It seems that my routine is not to be hungry in the morning but overeat in the evening. D. In my adult years, I have had week-long periods where I practically starve myself. This follows periods when I overeat. It seems I live a life of either feast or famine. Response Group 9: C Group 10 A. I usually am able to stop eating when I want to. I know when enough is enough. B. Every so often, I experience a compulsion to eat which I can't seem to control. C. Frequently, I experience strong urges to eat which I seem unable to control, but at other times I can control my eating urges. D. I feel incapable of controlling urges to eat. I have a fear of not being able to stop eating voluntarily. Response Group 10: D Group 11 A. I don't have any problem stopping eating when I feel full. B. I usually can stop eating when I feel full but occasionally overeat leaving me feeling uncomfortably stuffed. C. I have a problem stopping eating once I start and usually I feel uncomfortably stuffed after I eat a meal. D. Because I have a problem not being able to stop eating when I want, I sometimes have to induce vomiting to relieve my stuffed feeling. Response Group 11: B Group 12 A. I seem to eat just as much when I'm with others, Family social gatherings as when I'm by myself. B. Sometimes, when I'm with other persons, I don't eat as much as I want to eat because I'm self-conscious about my eating. C. Frequently, I eat only a small amount of food when others are present, because I'm very embarrassed about my eating. D. I feel so ashamed about overeating that I pick times to overeat when I know no one will see me. I feel like a closet eater. Response Group 12: A Group 13 A. I eat three meals a day with only an occasional between meal snack. B. I eat 3 meals a day, but I also normally snack between meals. C. When I am snacking heavily, I get in the habit of skipping regular meals. D. There are regular periods when I seem to be continually eating, with no planned meals. Response Group 13: B Group 14 A. I don't think much about trying to control unwanted eating urges. B. At least some of the time, I feel my thoughts are pre-occupied with trying to control my eating urges. C. I feel that frequently I spend much time thinking about how much I ate or about trying not to eat anymore. D. It seems to me that most of my waking hours are pre-occupied by thoughts about eating or not eating. I feel like I'm constantly struggling not to eat. Response Group 14: B Group 15 A. I don't think about food a great deal. B. I have strong craving for food but they last only for brief periods of time. C. I have days when I can't seem to think about anything else but food. D. Most of my days seem to be pre-occupied with thoughts about food. I feel like I live to eat. Response Group 15: C Group 16 A. I usually know whether or not I'm physically hungry. I take the right portion of food to satisfy me. B. Occasionally, I feel uncertain about knowing whether or not I'm physically hungry. A these times it's hard to know how much food I should take to satisfy me. C. Even though I might know how many calories I should eat, I don't have any idea what is a normal amount of food for me. Response Group 16: B Binge Eating Score: 31 (Score associated to unhealthy eating patterns, not consistent with an eating disorder. ) Score less than 17 Minimal Risk Score between 18-26 Moderate Risk Score between 27-46 High Risk Assessment & Plan Assessment & Plan (1) Adjustment disorder: Code(s): F43.20 - Adjustment disorder, unspecified (2) Inappropriate diet or eating habits: Code(s): Z72.4 - Inappropriate diet and eating habits (3) Pre-bariatric surgery psychological evaluation: Code(s): Z71.89 - Other specified counseling Plan Following a comprehensive behavioral health assessment?including review of the Binge Eating Scale, PHQ-9, mental status evaluation, and patient self-report?there are currently no behavioral health contraindications to proceeding with bariatric surgery. The patient demonstrates appropriate insight, motivation, and psychological readiness for the procedure. No active psychiatric symptoms or maladaptive eating behaviors were identified that would impede surgical outcomes at this time. The patient is cleared from a behavioral health perspective to proceed with bariatric surgery and documentation can be submitted for insurance approval as indicated. PT will return for a follow-up behavioral health visit 1?4 weeks postoperatively to monitor psychological adjustment, reinforce coping strategies, and screen for any emerging concerns such as mood changes, adjustment difficulties, or disordered eating patterns. Additional behavioral health support will be provided as needed based on postoperative assessment. Next kristen: 1-4 weeks PO. Telehealth Telehealth Telehealth Platform: [employer] Location of provider rendering services: practice address Location of patient: address on file Patient Identification confirmed using: Name, : Yes Telehealth method: video Patient verbally consented to treatment: Yes Patient verbally consented to billing insurance company: Yes Patient informed of any privacy concerns related to visit: Yes Minutes spent on Phone/Video with Pt.: 45 Coding Level of Care Code Established Pt Tele Psytx 45 mins ([id number]) Patient Type Established Diagnoses Adjustment disorder F43.20 Inappropriate diet or eating habits Z72.4 Pre-bariatric surgery psychological evaluation Z71.89 Additional Codes PHQ-9 - 92827 - PHQ-9 Billing: Yes ([id number]) Time Spent (min) 45
--- OUTSIDE RECORDS SUMMARY | 2025-04-23 12:39 | XMS_ITS | Clinical Summary ---
Author Organization [facility] [place] Address [address] [place], [place] Phone Care Team Providers Care Farm Boss Name Role Phone Concepción Clark MD Primary Care Provider [phone] Allergies No known active allergies Medications albuterol [...] Safety Answer Date Record ed Physical Abuse Unrecognized value 05/22/2023 Verbal Abuse Unrecognized value 05/22/2023 Comments Unknown Sex and Gender Information [...] Screening 04/28/2022 Depression Screening 07/25/2024 COVID-19 Vaccine (3 - season) 2025 05/29/2021, 05/01/2021 Influenza Vaccine (#1) 2025 , 07/01/2023, 08/01/2018, Additional history exists DTaP,Tdap,and Td Vaccines (4 - Td or Tdap) 01/03/2029 01/03/2019, 03/17/2016, 07/20/2012 RSV Immunization Adult Patients (1 - 1-dose 75+ series) 2069 Meningococcal ACWY Vaccine Completed 08/27/2011 Varicella Vaccines [...] Discussed and Confirmed with patient. Care Teams Farm Boss Relationship Specialty Start Date End Date Concepción Clark MD [address] [place] [id number] PCP - General Internal Medicine 05/21/23
== END 2025-04-23 12:16 | disposition home or self-care (01) ==
LOC: HO.HBST 11:14
PROVIDERS: Visit Provider Counselor Mental Health
DX: F43.20 Adjustment disorder, unspecified (principal); Z72.4 Inappropriate diet and eating habits; Z71.89 Other specified counseling
CPT/HCPCS: 90834

== ENCOUNTER → 2025-05-09 12:44 | Day surgery (SDC) | payer OTHER, SELFPAY ==
--- OUTSIDE RECORDS SUMMARY | 2025-03-21 06:53 | XMS_ITS | Clinical Summary ---
Author Organization [facility] [place] Address [address] [place], [place] Phone Care Team Providers Care Spikemaking Supervisor Name Role Phone Concepción Clark MD Primary Care Provider [phone] Allergies No known active allergies Medications albuterol [...] Discussed and Confirmed with patient. Care Teams Spikemaking Supervisor Relationship Specialty Start Date End Date Concepción Clark MD [address] [place] [id number] PCP - General Internal Medicine 05/21/23
--- NOTE | 2025-05-07 10:14 | HO.ANESPROP2 ---
HPI - Anesthesia Eval Consult details Narrative: 29yo F for Upper Endoscopy PMFSH Active Problems Active Problems: All Active Problems GERD (gastroesophageal reflux disease) (Acute) Fatigue (Acute) HLD (hyperlipidemia) (Acute) Anemia (Acute) Fatty liver (Acute) Migraines (Acute) Morbid obesity (Acute) Asthma (Acute) Irregular periods/menstrual cycles (Acute) Heartburn (Acute) Hiatal hernia (Acute) Genital herpes (Acute) Prediabetes (Acute) Annual physical exam (Acute) Past Medical History Medical History (Updated 03/18/25 @ 13:49 by Kd Jordan MD) GERD (gastroesophageal reflux disease) Migraines Recurrent candidiasis of vagina Morbid obesity Fatty liver Asthma Hiatal hernia Genital herpes Prediabetes Family History Family History Maternal Grandmother Diabetes Father Heart attack Maternal Grandmother Hypertension Mother Asthma Paternal Grandmother Diabetes Surgical History Surgical History H/O hand surgery Social History Social History Household Members: Family Both parents involved: No Caregiver staying overnight: No Housing: Apartment Alcohol intake: current Alcohol intake frequency: holidays/special occasions only Patient Tobacco Use Status: Current someday Tobacco user e-Cigarette/Vaping Use: Never Used Second Hand Smoke Exposure: No service: No Current occupational status: unemployed Current occupational exposures/hazards: No Cognitive needs: No Hearing needs: No Vision needs: No Meds Allergies Allergy/AdvReac Type Severity Reaction Status Date / Time No Known Allergies Allergy Verified 03/18/25 13:45 Home Medications ?Medication ?Instructions ?Recorded ?Confirmed ?Last Taken ?Type albuterol sulfate 90 mcg/actuation 2 puff inhalation Q6H PRN wheezing 01/17/25 03/18/25 Unknown History aerosol inhaler omeprazole 20 mg capsule,delayed 20 mg PO DAILY 03/18/25 03/18/25 Unknown History release Assessment and Plan Assessment Anesthesia Assessment: Chart Reviewed
[2025-05-07 11:01] VITALS: BMI 44.1
== END ==
LOC: HO.SSS 12:44
PROVIDERS: Visit Provider Surgery
DX: E66.01 Morbid (severe) obesity due to excess calories (principal); Z53.8 Procedure and treatment not carried out for other reasons

== ENCOUNTER 2025-06-11 05:57 | Day surgery (SDC) | payer OTHER, SELFPAY ==
[2025-06-07 10:39] VITALS: BMI 44.1
--- NOTE | 2025-06-07 11:15 | P.CONAN_ITS ---
Documented by User: Sharifa Anthony NP 06/07/25 11:19 HPI - Anesthesia Eval Consult details Narrative: 29 yr old female for upper endoscopy BMI 44 Asthma: on ICS/LABA Elevated triglycerides: >250 PMFSH Active Problems Active Problems: All Active Problems GERD (gastroesophageal reflux disease) (Acute) Fatigue (Acute) HLD (hyperlipidemia) (Acute) Anemia (Acute) Fatty liver (Acute) Migraines (Acute) Morbid obesity (Acute) Asthma (Acute) Irregular periods/menstrual cycles (Acute) Heartburn (Acute) Hiatal hernia (Acute) Genital herpes (Acute) Prediabetes (Acute) Annual physical exam (Acute) Past Medical History Medical History Normal esophagogastroduodenoscopy (EGD) GERD (gastroesophageal reflux disease) Migraines Recurrent candidiasis of vagina Morbid obesity Fatty liver Asthma Hiatal hernia Genital herpes Prediabetes Family History Family History Maternal Grandmother Diabetes Father Heart attack Maternal Grandmother Hypertension Mother Asthma Paternal Grandmother Diabetes Surgical History Surgical History H/O hand surgery Social History Social History Household Members: Family Housing: Apartment Alcohol intake: current Alcohol intake frequency: holidays/special occasions only Patient Tobacco Use Status: Current someday Tobacco user Tobacco use type: Smokeless Tobacco e-Cigarette/Vaping Use: Never Used Frequency of e-Cigarette/Vaping Use: smokes hoker socially Second Hand Smoke Exposure: No Have you been hit, kicked, punched, or otherwise hurt by someone within the past year? If so, by whom?: No Are you DNR?: No Advance Directives: No Advance Directives Information Provided: Yes FDLMP: last week service: No Current occupational status: unemployed Current occupational exposures/hazards: No Cognitive needs: No Hearing needs: No Vision needs: No Meds Allergies Allergy/AdvReac Type Severity Reaction Status Date / Time No Known Allergies Allergy Verified 03/18/25 13:45 Home Medications ?Medication ?Instructions ?Recorded ?Confirmed ?Last Taken ?Type albuterol sulfate 90 mcg/actuation 2 puff inhalation Q 6H PRN wheezing 06/26/25 11/14/25 11/16/25 History aerosol inhaler omeprazole 20 mg capsule,delayed 20 mg PO DAILY 06/07/25 06/11/25 History release Exam Height,Weight and Vital Signs: Height 5 ft 1.5 in Weight 107.558 kg Pertinent Lab Results Pertinent Lab Results: Laboratory Tests 04/11/25 07:22 WBC 9.0 RBC 4.98 Hgb 12.7 Hct 39.4 Plt Count 315 Sodium 138 Potassium 4.0 Chloride 109 H Carbon Dioxide 22 BUN 18 H Creatinine 0.73 Narrative Narrative: EKG 03/2025 Vent. Rate : 72 BPM Atrial Rate : 72 BPM P-R Int : 160 ms QRS Dur : 76 ms QT Int : 408 ms P-R-T Axes : 50 60 17 degrees QTcB Int : 446 ms Normal sinus rhythm Normal ECG No previous ECGs available Documented by User: Mike Thompson MD 06/11/25 07:28 [facility] Past Medical History Medical History Normal esophagogastroduodenoscopy (EGD) GERD (gastroesophageal reflux disease) Migraines Recurrent candidiasis of vagina Morbid obesity Fatty liver Asthma Hiatal hernia Genital herpes Prediabetes Family History Family History Maternal Grandmother Diabetes Father Heart attack Maternal Grandmother Hypertension Mother Asthma Paternal Grandmother Diabetes Family history of problems with anesthesia: No Surgical History Surgical History H/O hand surgery History of Problems with Anesthesia: No Social History Social History Household Members: Family Housing: Apartment Alcohol intake: current Alcohol intake frequency: holidays/special occasions only Patient Tobacco Use Status: Current someday Tobacco user Tobacco use type: Smokeless Tobacco e-Cigarette/Vaping Use: Never Used Frequency of e-Cigarette/Vaping Use: smokes hoker socially Second Hand Smoke Exposure: No Have you been hit, kicked, punched, or otherwise hurt by someone within the past year? If so, by whom?: No Are you DNR?: No Advance Directives: No Advance Directives Information Provided: Yes FDLMP: last week service: No Current occupational status: unemployed Current occupational exposures/hazards: No Cognitive needs: No Hearing needs: No Vision needs: No Meds Allergies Allergy/AdvReac Type Severity Reaction Status Date / Time No Known Allergies Allergy Verified 03/18/25 13:45 Home Medications ?Medication ?Instructions ?Recorded ?Confirmed ?Last Taken ?Type albuterol sulfate 90 mcg/actuation 2 puff inhalation Q 6H PRN wheezing 01/17/25 06/07/25 06/09/25 History aerosol inhaler omeprazole 20 mg capsule,delayed 20 mg PO DAILY 06/07/25 06/11/25 History release Exam Exam Date and Time: 06/11/25 Airway Mallampati Class: II TM Dist: >3cm Neck ROM: Full Loose/Missing/Broken Teeth: No Heart: rrr Lungs: ctab vesicular Assessment and Plan Assessment Anesthesia Assessment: Anesthesia Plan Discussed and Chart Reviewed Final Anesthetic Review Family History of Problems with Anesthesia: No History of Problems with Anesthesia: No NPO: Yes ASA Class: III Final Preanesthetic Review: No Changes in Pt Med Stat, Meds/Allgs Chart Reviewed, Consent Obtained/Reviewed and Anes Risks/Benef Reviewed Patient Risk: Low Procedure Risk: Low Anesthetic Plan Anesthetic Plan: MAC: Disposition: Standard PACU
[2025-06-11 06:11] VITALS: BP 145/79; PULSE 81; RESP 20; TEMP 36.7; O2SAT 97; BMI 42.9
[2025-06-11 06:19] LABS: UPreg QC Valid YES
[2025-06-11] MEDS: Lactated Ringers 1,000 ML 100 ML IVCONT (06:23)
--- NOTE | 2025-06-11 07:33 | MHC.SHP ---
Pre-Procedural Eval Section A - 24 Hr Update-Section A only Date of Service: 06/11/25 The patient is an INPATIENT: No The patient has been examined within 24 hours of the surgical procedure. The History & Physical has been completed within 30 days and I have reviewed it.: Yes Section B - Complete if H&P > 30 days Chief Complaint: Morbid (severe) obesity due to excess calories Details of Present Illness: GERD Relevant Family History (Specify if Yes): No Relevant Social History: None Present Medications: None Medical History: No relevant PMH History of Previous Operations: No relevant previous surgery Allergies: Allergies Allergy/AdvReac Type Severity Reaction Status Date / Time No Known Allergies Allergy Verified 03/18/25 13:45 Review of Systems Sugical H&P ROS: Negative: Constitution, Cardiovascular, Respiratory, Neurological, Psychiatric, Hem-Onc, Allergic/Immunologic, Gastrointestinal, Genitourinary, Musculoskeletal, Integumentary, Endocrine and Eyes/Ears/Nose/Throat Exam Surgical H&P Exam: Normal: HEENT, Normal: Heart, Normal: Lungs, Normal: Extremities, Normal: Abdomen, Normal: Skin and Normal: Neurological Plan Diagnosis/Plan: Unchanged (EGD to assess etiology of GERD. Risks of bleeding and perforation were discussed with the patient and she is in agreement with the plan.) I have reviewed the history and physical and performed a pertinent physical examination on my patient. No changes have occurred unless specified. Time Spent With Patient Time: Total time managing care of this patient today ____ minutes.
--- NOTE | 2025-06-11 07:34 | PM.OP ---
Brief Operative Note Date of Service: 06/11/25 Pre-op diagnosis: GERD Procedure: PROCEDURE DATE: 06/11/2025 PREOPERATIVE DIAGNOSIS: GERD POSTOPERATIVE DIAGNOSIS: ?Same as above. Normal endoscopy PROCEDURE: Yocjrper-apzueh-gnrtjsxdhmst with biopsies Surgeon: ?German Jordan M.D.. Ph.D. Theater Set Production Designer: None ? Anesthesia: IV sedation Estimated blood loss: ?Minimal FINDINGS AND PROCEDURE: ? OPERATIVE INDICATIONS: ?The patient is a 29 year old female known to me who is interested in bariatric surgery. The patient has GERD. Based on this information I recommended an upper endoscopy to evaluate the patient's symptoms. Risks and complications of the surgery were discussed with the patient in advance particularly the possibility of perforation or bleeding that may require surgical intervention. The patient understood the risks and was in agreement with the plan. ? PROCEDURE: After informed consent was obtained by the patient, the patient was ?transferred to the Operating Room and was placed in the supine position.? After successful induction of IV sedation, a mouth block was inserted and the patient was placed in the left lateral decubitus position. An upper endoscopy was performed next, the oropharynx and esophagus appeared within the normal limits. There was no hiatal hernia. The z-line was smooth. Two biopsies were obtained from the distal esophagus 2-3 cm proximal to the GE junction and two additional biopsies from the GE junction. The stomach was entered and it appeared to be of normal size. There was no gastritis. There was no stricture or ulcer. A biopsy was obtained from the gastric fundus and the antrum. No significant bleeding was noted from any of the biopsy sites. Retroflexion of the scope confirmed the presence of a normal GE junction. The scope was then advanced into the duodenum which appeared to be normal as well. At that point the duodenum ?and the stomach were decompressed and the scope was withdrawn from the patient's mouth. The patient extubated and was transferred in stable condition to the Recovery Room for further care. I was present and performed all steps of the procedure. There were no residents to assist with this case. German Jordan M.D., Ph.D. Surgeon: Kd Jordan MD Anesthesia: MAC Was an Theater Set Production Designer used for this Procedure?: No Estimated blood loss (mL): 0 IV fluids (mL): 400 Urine output (mL): 0 (No Sterling to record output) Pathology: other (1) antrum x1, 2) fundus x1, 3) GE junction x2, 4) distal esophagus x2) Condition: stable Disposition: PACU
[2025-06-11 07:57] VITALS: BP 119/65; PULSE 95; RESP 10; TEMP 36.5; O2SAT 95
[2025-06-11 08:00] VITALS: BP 104/64; PULSE 95; RESP 14; O2SAT 95
[2025-06-11 08:12] VITALS: BP 119/88; PULSE 95; RESP 14; O2SAT 95
== END 2025-06-11 08:41 | disposition home or self-care (01) ==
PROVIDERS: Nurse Practitioner; Visit Provider Surgery
PROC: 0DJ08ZZ Inspection of Upper Intestinal Tract, Via Natural or Artificial Opening Endoscopic (ICD-10-PCS; CPT 43235; principal; 2025-06-11 07:30)
DX: K21.9 Gastro-esophageal reflux disease without esophagitis (principal); E66.01 Morbid (severe) obesity due to excess calories; Z68.41 Body mass index [BMI] 40.0-44.9, adult; K76.0 Fatty (change of) liver, not elsewhere classified; R73.03 Prediabetes; J45.909 Unspecified asthma, uncomplicated; G43.909 Migraine, unspecified, not intractable, without status migrainosus; Z79.51 Long term (current) use of inhaled steroids; Z79.899 Other long term (current) drug therapy; F17.210 Nicotine dependence, cigarettes, uncomplicated; Z56.0 Unemployment, unspecified; Z98.890 Other specified postprocedural states
CPT/HCPCS: 43239; 81025; 88305; 88313; 88342; J2003; J2704

== ENCOUNTER → 2025-06-11 05:57 | Outpatient (BNV) | payer OTHER, SELFPAY | PROVIDERS: Visit Provider Surgery | DX: K21.9 Gastro-esophageal reflux disease without esophagitis (principal) | CPT/HCPCS: 43239 ==

== ENCOUNTER 2025-06-11 08:45 | Outpatient (REF) | payer OTHER, SELFPAY ==
--- NOTE | ~2025-06-11 | US_ITS ---
EXAMINATION: US COMPLETE ABDOMEN WITH LIVER ELASTOGRAPHY CLINICAL INFORMATION: Obesity COMPARISON: None available. TECHNIQUE: Real-time imaging of the abdominal viscera. Noninvasive ultrasound liver fibrosis assessment is performed using Perry ElastPQ point quantification shear wave elastography (pSWE) with a C5-2 MHz transducer. Multiple elastography samples are obtained. FINDINGS: PANCREAS: The visualized pancreatic head and body are normal in appearance. The remainder of the pancreas is obscured from visualization by the overlying bowel gas. ABDOMINAL AORTA: No aortic aneurysm is seen. INFERIOR VENA CAVA: Visualized portions are normal. LIVER: The liver demonstrates normal contour. Increased parenchymal echogenicity.. No focal lesion or intrahepatic biliary duct dilatation. The right lobe measures 17.5 cm in length. The left lobe measures 14 cm in length. Portal flow is hepatopedal Shear wave liver elastography median stiffness is 0.98 m/s (reference: normal median stiffness is 1.3 m/s or less). IQR/median stiffness to assess sampling precision is 0.3 (reference: good quality data set is IQR/median stiffness of 0.15 or less). GALLBLADDER: The gallbladder is physiologically distended without evidence of stones, sludge, polyps, wall thickening or pericholecystic fluid. COMMON BILE DUCT: Normal in caliber measuring 0.5 cm in diameter. RIGHT KIDNEY: No hydronephrosis. No renal calculi or focal parenchymal lesions. The kidney measures 10.2 cm in maximum dimension. LEFT KIDNEY: No hydronephrosis. No renal calculi or focal parenchymal lesions. The kidney measures 11.9 cm in maximum dimension. SPLEEN: Unremarkable. The spleen measures 10.7 cm in maximum dimension. FREE FLUID: None seen. US/US abdomen comp w elastography IMPRESSION: 1. Hepatomegaly. There is generalized increase in hepatic echotexture, consistent with fatty infiltration or hepatocellular disease. Please correlate clinically. No focal hepatic mass or intrahepatic biliary duct dilatation is seen. 2. Liver elastography: Median stiffness measures 0.98 m/s. *Liver Stiffness equal or less than 1.3 m/s: High probability of being normal REFERENCE: Society of Radiologists in Ultrasound Liver Stiffness Thresholds (2020): LIVER STIFFNESS THRESHOLDS: *Liver Stiffness equal or less than 1.3 m/s: High probability of being normal. *Liver Stiffness less than 1.7 m/s: In the absence of other known clinical signs, rules out compensated advanced chronic liver disease. *Liver Stiffness 1.7-2.1 m/s: Suggestive of compensated advanced chronic liver disease but need further test for confirmation. *Liver Stiffness over 2.1 m/s: Rules in compensated advanced chronic liver disease. *Liver Stiffness over 2.4 m/s: Suggestive of clinically significant portal hypertension. QUALITY OF DATA SET: *IQR/Median value equal or less than 0.15 implies a quality data set. *IQR/Median value over 0.15 implies a poor quality data set. SIGNIFICANT CHANGE FROM PRIOR EXAM: Significant change if liver stiffness measurement is 10% or greater from prior exam. OTHER CONSIDERATIONS: The stage of liver fibrosis may be overestimated in the setting of acute hepatitis, liver inflammation, elevated liver function tests, hepatic vascular congestion, obstructive cholestasis, non-fasting state, and infiltrative diseases such as amyloidosis and lymphoma. In some patients with NAFLD, the liver stiffness thresholds for compensated advanced chronic liver disease may be lower. In causes other than viral hepatitis and NAFLD, liver stiffness thresholds are not well established. Electronically signed by: Jigar Meredith MD 06/11/2025 11:49 AM EST
== END 2025-06-11 08:46 | disposition home or self-care (01) ==
LOC: HO.US 08:45
PROVIDERS: Visit Provider Surgery
DX: E66.01 Morbid (severe) obesity due to excess calories (principal); R73.03 Prediabetes; E78.2 Mixed hyperlipidemia; K21.9 Gastro-esophageal reflux disease without esophagitis; K76.0 Fatty (change of) liver, not elsewhere classified; K44.9 Diaphragmatic hernia without obstruction or gangrene; G43.901 Migraine, unspecified, not intractable, with status migrainosus; J45.40 Moderate persistent asthma, uncomplicated
CPT/HCPCS: 76700; 76981; 99202

== ENCOUNTER 2025-06-11 11:51 | Outpatient (AMB) | payer OTHER, SELFPAY ==
--- NOTE | 2025-06-11 12:00 | MHC.OFFVIS ---
Intake Visit Reasons: migrane Allergies No Known Allergies Allergy (Verified 03/18/25 13:45) Medication List - Last Reconciled 06/11/25 by Omar Bernard MD albuterol sulfate 90 mcg/actuation 2 puffs inhalation Q6H PRN budesonide-formoterol 160-4.5 mcg/actuation (Symbicort) 2 puffs inhalation BID cholecalciferol (vitamin D3) 50 mcg PO DAILY magnesium oxide 400 mg PO BEDTIME omeprazole 20 mg PO DAILY riboflavin (vitamin B2) 400 mg PO DAILY sumatriptan succinate take 1 tab at onset of headache; if no relief may repeat 1 tab after at least 2 hrs; max = 4 tabs/24 hr PO 30 days valacyclovir 500 mg PO BID 10 days HPI Comments Details: This is a 29-year-old right-handed woman with a history of bronchial asthma and morbid obesity who is here for evaluation of headaches that started about 2 years ago. She currently gets them about twice a month, and each time they last 4-5 days. No triggers have been identified. The headache is associated with nausea without vomiting, intense photophobia and a pounding headache. There is no aura associated with it. There is also pressure in the head. Most times, it is of moderate severity, although at times it can be worse. She sleeps well at night. There is no family history of migraines. No history of motion sickness. No history of head trauma. She currently takes sumatriptan 50 mg and Tylenol with mixed results. She may get some relief for 2 or 3 hours with a sumatriptan but then the headache comes back. She has never been on any prophylactic medications. She is undergoing evaluation for bariatric surgery for weight loss. She is 61 in tall and 229 lb [facility] Medical History Normal esophagogastroduodenoscopy (EGD) GERD (gastroesophageal reflux disease) Migraines Recurrent candidiasis of vagina Morbid obesity Fatty liver Asthma Hiatal hernia Genital herpes Prediabetes Surgical History H/O hand surgery Family History Maternal Grandmother Diabetes Father Heart attack Maternal Grandmother Hypertension Mother Asthma Paternal Grandmother Diabetes Social History Household Members: Family Both parents involved: No Caregiver staying overnight: No Housing: Apartment Alcohol intake: current Alcohol intake frequency: holidays/special occasions only Patient Tobacco Use Status: Current someday Tobacco user Tobacco use type: Smokeless Tobacco e-Cigarette/Vaping Use: Never Used Second Hand Smoke Exposure: No service: No Current occupational status: unemployed Current occupational exposures/hazards: No Cognitive needs: No Hearing needs: No Vision needs: No Review of Systems Const Reports headache(s) and Reports weight loss ENT Reports headache(s) Musc Reports back pain Neuro Reports headache(s) Physical Exam Neuro Other: ?Mini Mental Status Exam Level of Consciousness:?Alert.? Orientation:?Knows correct year, month, date, day and season.?Knows correct city, county and state. Knows correct location and floor.? Registration:?Able to register 3 objects.? Attention:?Serial 7's performed accurately.? Recall:?Able to recall 3 out of 3 objects.? Language:?Normal spontaneous speech, fluency, repetition, naming, comprehension, reading, and writing.? Total Score:?30/30.? Neurological Abnormal neurological findings:??none.? Mental Status:?Alert and oriented X 3.?Normal attention, orientation, memory, and affect.? Cranial Nerves:?Pupils are equal, round and reactive to light. Fundoscopy shows normal disc bilaterally. External occular muscles are intact. Visual shelby are full, no ptosis. Face is symmetrical, no facial weakness or droop. Facial sensations are normal. Tongue protrudes in midline. Palate elevates symmetrically. Shoulder shrugging is normal.? Motor Examination:?Normal muscle tone, bulk and strength.?No atrophy or fasciculations.?No drift of the extended upper extremities.?Deep tendon reflexes are 2+.?Plantars are flexor.? Motor Strength:? Proximal Muscles (out of 5):?5 Distal Muscles (out of 5):?5 Neck Flexors (out of 5):?5 Neck Extensors (out of 5):?5 Deltoid (out of 5):?5 Biceps (out of 5):?5 Triceps (out of 5):?5 Serratus Anterior (out of 5):?5 Wrist Extensors (out of 5):?5 APB (out of 5):?5 Finger Spread (out of 5):?5 Ileopsoas (out of 5):?5 Quadriceps (out of 5):?5 Hamstrings (out of 5):?5 Tibialis Anterior (out of 5):?5 Peronei (out of 5):?5 EDB (out of 5):?5 Gastrocnemius (out of 5):?5 Straight Leg Raising:?90 degrees.? Sensory Exam:?Normal light touch, temperature, pinprick, vibration and joint-position sensations.?Rhomberg sign is absent.? Coordination:?No ataxia,?no titubation,?adesze-fb-mgsq, vmuu-jmen-khla test, and rapid alternating movements were normal.? Gait Exam:?Within normal limits.? Cerebellar Signs:?Mhjalg-jw-nkae and bbny-qp-kbsr is normal.?No dysdiadochokinesia.? Extrapyramidal System:?No tremor or?rigidity, normal facial expressions.?No bradykinesia. No bradyphrenia. Normal arm swing and posture. No propulsion or retropulsion.? Speech:?Normal,?no dysphasia or dysarthria.? General Examination GENERAL APPEARANCE:??normal,?in no acute distress?,?normal,?in no acute distress.? HEAD:??normocephalic,?atraumatic.? EYES:??sclera non-icteric,?conjunctiva clear.? EARS:??auditory canal clear,?tympanic membrane intact, clear.? NOSE:??no lesions.? ORAL CAVITY:??gums normal,?mucosa moist,?no lesions.? THROAT:??clear.? NECK/THYROID:??no cervical lymphadenopathy,?thyroid normal,?neck supple, full range of motion,?no carotid bruit.? SKIN:??no rashes,?no significant birthmarks.? HEART:??S1, S2 normal,?no murmurs?,?S1, S2 normal,?no murmurs.? LUNGS:??clear anteriorly and posteriorly?,?clear anteriorly and posteriorly.? CHEST:??no gross rib deformity,?clear to auscultation.? BACK:??normal exam of spine.? MUSCULOSKELETAL:??normal.? EXTREMITIES:??no edema?,?no edema.? PERIPHERAL PULSES:??normal.? PSYCH:??alert, oriented,?cognitive function intact,?cooperative with exam?,?alert, oriented,?cognitive function intact,?cooperative with exam.? Assessment & Plan Assessment & Plan (1) Migraines: Code(s): G43.909 - Migraine, unspecified, not intractable, without status migrainosus Category: Medical Qualifiers: Migraine type: unspecified Status migrainosus presence: with status migrainosus Intractability: not intractable Qualified Code(s): G43.901 - Migraine, unspecified, not intractable, with status migrainosus (2) Asthma: Code(s): J45.909 - Unspecified asthma, uncomplicated Category: Medical Qualifiers: Asthma severity: moderate Asthma persistence: persistent Asthma complication type: unspecified Qualified Code(s): J45.40 - Moderate persistent asthma, uncomplicated (3) Morbid obesity: Code(s): E66.01 - Morbid (severe) obesity due to excess calories Category: Medical Plan Sumatriptan 100mg prn upto 2/ 24 hrs. Topiramate 50mg bid Medications: New sumatriptan succinate do not exceed 2 doses per 24 hrs 100 mg PO Q4H PRN 9 tabs 5RF Migraine Headache 30 days MDD 200mg topiramate XR 50 mg PO BID 60 caps 4RF 30 days Coding Level of Care Code New Pt Level 5 (11389) Diagnoses Migraine with status migrainosus, not intractable, unspecified migraine type G43.901 Migraine type: unspecified Status migrainosus presence: with status migrainosus Intractability: not intractable Moderate persistent asthma, unspecified whether complicated J45.40 Asthma severity: moderate Asthma persistence: persistent Asthma complication type: unspecified Morbid obesity E66.01
== END 2025-06-11 12:26 | disposition home or self-care (01) ==
LOC: HO.HSM 11:51
PROVIDERS: Visit Provider Psychiatry & Neurology Neurology
DX: G43.901 Migraine, unspecified, not intractable, with status migrainosus (principal); J45.40 Moderate persistent asthma, uncomplicated; E66.01 Morbid (severe) obesity due to excess calories
CPT/HCPCS: 99204

== ENCOUNTER 2025-07-16 15:13 | Outpatient (AMB) | payer OTHER, SELFPAY ==
--- NOTE | 2025-07-16 15:15 | A.OFFPC_ITS ---
Vital Signs 07/16/25 15:17 Height 5 ft 1.5 in Weight 228 lb 4 oz BMI 42.4 BP 108/74 Blood Pressure Location Lt brachial Position Sitting Respiration 18 Pulse 72 Pulse Source Pulse Oximeter Temp Source Temporal Artery Scan Pulse Oximetry (%) 97 Oxygen Delivery Method Room Air Intake Visit Reasons: migraines/asthma/fatigue/fatty liver; rescheduled In Tube Conversion Technician Required: No Accompanied by: Self / Same As Patient Allergies No Known Allergies Allergy (Verified 07/16/25 15:49) Medication List - Last Reconciled 07/16/25 by LUCINA Iglesias albuterol sulfate 90 mcg/actuation 2 puffs inhalation Q6H PRN budesonide-formoterol 160-4.5 mcg/actuation (Symbicort) 2 puffs inhalation BID cholecalciferol (vitamin D3) 50 mcg PO DAILY magnesium oxide 400 mg PO BEDTIME omeprazole 20 mg PO DAILY riboflavin (vitamin B2) 400 mg PO DAILY sumatriptan succinate 100 mg PO Q4H PRN 30 days MDD 200mg sumatriptan succinate take 1 tab at onset of headache; if no relief may repeat 1 tab after at least 2 hrs; max = 4 tabs/24 hr PO 30 days topiramate 100 mg PO BID 30 days valacyclovir 500 mg PO BID 10 days Tobacco use date assessed: 07/16/25 Dental Screening Dental Screen Date: 07/16/25 Did you have a dental visit in the last 12 months?: Yes Did you have a dental problem in the last 6 months where you did not have access to dental care?: No Was dental information given to patient?: Patient has dentist HPI migraines/asthma/fatigue/fatty liver; rescheduled HPI Details The patient is a 29-year-old female presenting with fatigue, gastrointestinal issues, migraines, HLD, Weight management, asthma Patient reports headache attributed to not eating today Reports ongoing heartburns depending on what she eats, hx of haital hernia and morbid obesity, plans for gastric bypass. Reports that she will be on a liquid diet soon as part prepping for surgery Elevated liver enzymes, elastrography shows hepatomegaly and fattly liver but no advanced liver disease, pending gastroenterology evaluation Triglycerides continue to be elevated, low HDL, discussed dietary modifications like process foods in carbohydrate. Encouraged taking fish oil and Co Q10 supplements. . She reports mild lower back pain that she thinks is related to epidural injections received during childbirth of her kids. Reports that it is not always present and it is mild in nature. Denies chest pain, shortness of breath heart palpitation, denies abdominal pain or change in bowel habits. The patient reports recurrent yeast infection that she has been treated with fluconazole 150 mg that she purchased in [place] monthly. She also has been using Vagisil cream feeling these outbreaks. Patient also reports recurrent genital warts and has been taking the valacyclovir 500 mg b.i.d. times 10 days. Reports that she has been getting these outbreaks more often than before. Reports that she used to take 1000 mg for 5 days before. However, the patient reports that she will not be able to take any pills after his surgery for sometime after her gastric bypass surgery. She is requesting another treatment option for both her recurrent yeast infection and genital warts outbreak [facility] Medical History Normal esophagogastroduodenoscopy (EGD) GERD (gastroesophageal reflux disease) Migraines Recurrent candidiasis of vagina Morbid obesity Fatty liver Asthma Hiatal hernia Genital herpes Prediabetes Surgical History H/O hand surgery Family History Maternal Grandmother Diabetes Father Heart attack Maternal Grandmother Hypertension Mother Asthma Paternal Grandmother Diabetes Social History Household Members: Family Both parents involved: No Caregiver staying overnight: No Housing: Apartment Alcohol intake: current Alcohol intake frequency: holidays/special occasions only Patient Tobacco Use Status: Current someday Tobacco user Tobacco use type: Smokeless Tobacco e-Cigarette/Vaping Use: Never Used Second Hand Smoke Exposure: No service: No Current occupational status: unemployed Current occupational exposures/hazards: No Cognitive needs: No Hearing needs: No Vision needs: No Questionnaire PHQ-9 Over the last 2 weeks, how often have you been bothered by any of the following problems? Depression Screening Interpretation: Negative Depression Screening Done: Yes Source: Developed by Drs. Ankit Colón, Wesley Dahl and colleagues, with an educational iban from [employer]. Thrive Questionnaire Date Thrive assessed: 07/16/25 I am a: Patient What is your living situation today?: I have a steady place to live Within the past 12 months, did the food you bought not last and you didn't have the money to get more?: Never true Within the past 12 months, did you worry whether your food would run out before you got money to buy more?: Never true Do you have trouble paying for medicines?: No Do you have trouble getting transportation to medical appointments?: No Do you have trouble paying your heating and electricity bill?: No Do you have trouble taking care of your child, family member or friend?: No Do you have trouble with day-to-day activities such as bathing, preparing meals, shopping, managing finances, etc.?: No Are you currently unemployed and looking for a job?: Yes Are you interested in more education?: No Please select the resources that you would like help with: None Currently or been in a relationship where the following occur: I choose not to answer THRIVE Score: 0 DACIA-7 AMB Questionnaire DACIA-7 Date DACIA - 7 assessed: 03/15/25 Source: Developed by Drs. Ankit Colón, Wesley Dahl and colleagues, with an educational iban from [employer]. Review of Systems Const Reports daytime sleepiness, Reports fatigue, Reports headache(s) (on and off, but severe when present (could last 3 days)) and Reports snoring Eyes Denies loss of vision and Reports photophobia (during headaches) ENT Denies vertigo, Denies dizziness, Reports headache(s) (on and off, but severe when present (could last 3 days)) and Denies sore throat Card Denies chest pain, Denies leg edema and Denies lightheadedness Resp Denies cough, Denies hemoptysis, Reports snoring and Denies wheezing GI Denies abdominal pain, Denies melena, Denies constipation, Reports heartburn (recurrent depending on what she eats), Denies diarrhea and Denies vomiting Reports abnormal menses, Denies urinary frequency, Denies dysuria and Denies urinary urgency Musc Reports back pain (mild and occasional), Denies arthralgias, Denies joint swelling, Denies numbness and Denies tingling Neuro Denies Abnormal speech present, Denies behavioral changes, Denies vertigo, Denies dizziness, Reports headache(s) (on and off, but severe when present (could last 3 days)), Denies loss of vision, Denies memory loss, Denies numbness and Denies tingling Psych Denies anxiety, Denies behavioral changes, Denies depression, Denies memory loss and Denies panic attacks Endo Reports fatigue Charlie/Lymph Denies easy bleeding and Denies easy bruising Aller/Immun Denies wheezing Physical exam (Primary Care) Vital Signs: Last Vital Signs Pulse 72 07/16/25 15:17 Resp 18 07/16/25 15:17 BP 108/74 07/16/25 15:17 Pulse Ox 97 07/16/25 15:17 Oxygen Delivery Method Room Air 07/16/25 15:17 BMI result Body Mass Index 42.4 Tobacco/Smoking Status: Tobacco use Status Tobacco use date assessed 07/16/25 07/16/25 15:19 Patient Tobacco Use Status Current someday Tobacco 07/16/25 15:16 Tobacco use type Smokeless Tobacco 07/16/25 15:16 e-Cigarette/Vaping Use Never Used 07/16/25 15:16 Depression Screening Interpretation: Negative Thrive Assessment: Date of Thrive Assessment Date Thrive assessed 07/16/25 07/16/25 15:19 Currently or been in a relationship where the following occur: I choose not to answer Const General: healthy appearing, no acute distress, alert and awake Nutritional Appearance: obese morbidly obese Orientation/consciousness: oriented to person, oriented to place and oriented to time [facility] Ears: hearing grossly normal bilaterally General nose exam: Normal nasal mucous membranes and turbinates present Eyes Conjunctivae: conjunctivae normal Sclerae: sclerae normal Pupils: Equal, round and reactive pupils present Direct Ophthalmoscopy: photophobia (during headaches) Neck Neck: Yes no lymphadenopathy and Yes no JVD Thyroid: Thyroid normal Carotids: no bruits Resp Effort & Inspection: normal respiratory effort and not tachypneic Auscultation: no crackles, no rales, no rhonchi and no wheezes Cardio Rate: regular rate Rhythm: regular rhythm Heart sounds: no murmurs and normal S1 and S2 GI Inspection: Yes obesity Palpation (GI): Soft to palpation, nontender, no hepatomegaly and no splenomegaly Auscultation: normal bowel sounds Back/Spine/Pelvis Thoracic/Lumbar Spine: No lumbar spinal tenderness Skin General skin exam: no rashes or lesions noted and dry skin Neuro General: oriented to person, oriented to place, oriented to time, no focal motor deficits and CN's II-XI intact bilaterally Cranial nerves: Yes Equal, round and reactive pupils present Speech: No Abnormal speech present Gait exam (Neuro): Normal gait present Motor exam (neuro): no tremor noted Extrem Right upper extremity: full ROM Left upper extremity: full ROM Right lower extremity: full ROM; no edema Left lower extremity: full ROM; no edema Psych Mental Status: mental status grossly normal Speech and movement: Normal speech and movement present Affect: normal affect Attitude: cooperative Thought process: Normal thought process present Results Reviewed Results Reviewed: Laboratory Tests 04/11/25 07:22 WBC 9.0 RBC 4.98 Hgb 12.7 Hct 39.4 MCV 79.1 L MCH 25.5 L MCHC 32.2 RDW 14.0 Plt Count 315 Sodium 138 Potassium 4.0 Chloride 109 H Carbon Dioxide 22 Anion Gap 11 L BUN 18 H Creatinine 0.73 Estimated GFR > 60 Random Glucose 89 Estimat Average Glucose 117 Hemoglobin A1c % 5.7 Insulin Level 17 Calcium 9.4 Iron 31 TIBC 383 % Saturation 8 L Unsat Iron Binding 352 Ferritin 30 Total Bilirubin 0.2 AST 34 H ALT 59 H Alkaline Phosphatase 99 C-Reactive Protein 1.27 H Total Protein 7.5 Albumin 4.6 Triglycerides 252 H Cholesterol 160 LDL Cholesterol, Calc 75 HDL Cholesterol 35 L Vitamin A 72 Vitamin B1 10 Vitamin B12 566 25-OH Vitamin D Total 38.0 Folate 12.0 TSH 2.48 Coding Level of Care Code Est Pt Level 4 (57144) Diagnoses Prediabetes R73.03 Morbid obesity E66.01 Heartburn R12 Fatty liver K76.0 Irregular periods/menstrual cycles N92.6 Anemia, unspecified type D64.9 Anemia type: unspecified type Migraine with status migrainosus, not intractable, unspecified migraine type G43.901 Migraine type: unspecified Status migrainosus presence: with status migrainosus Intractability: not intractable Moderate persistent asthma, unspecified whether complicated J45.40 Asthma severity: moderate Asthma persistence: persistent Asthma complication type: unspecified Mixed hyperlipidemia E78.2 Hyperlipidemia type: mixed hyperlipidemia Fatigue, unspecified type R53.83 Fatigue type: unspecified Yeast infection B37.9 Herpes simplex vulvovaginitis A60.04 Herpes simplex infection site: vulvovaginitis Time Spent (min) 41 Assessment & Plan Assessment & Plan (1) Prediabetes: Code(s): R73.03 - Prediabetes Category: Medical Plan: The patient remains in the prediabetic range. Reinforced low sugar/carbohydrate diet We will continue to monitor fasting glucose and A1c (2) Morbid obesity: Code(s): E66.01 - Morbid (severe) obesity due to excess calories Category: Medical Plan: Encouraged to exercise for at least 30 minutes a day/5 days a week Healthy eating discussed. Encouraged to eat fruits/vegetables, protein- fish/baked chicken, and to avoid salty/fried foods, sweets, caffeine and carbohydrates. Encouraged to increase water intake 6-8 glasses a day (3) Heartburn: Code(s): R12 - Heartburn Category: Medical Plan: Do not eat meals or drink carbonated beverages within 3 hr of bedtime Decrease the amount of fried, fatty, and spicy foods to decrease gastric acid production Raise the head of the bed using 4 to 6-inch blocks, especially if nocturnal symptoms are present Lose weight if indicated; avoid tight-fitting clothing, especially around the waist Avoid foods that relax the Lower esophageal sphincter (chocolate, peppermint, high-fat foods etc.,) (4) Fatty liver: Code(s): K76.0 - Fatty (change of) liver, not elsewhere classified Category: Medical Plan: AST 34 and ALT 59, recent elastrography showes hepatomegaly and fatty liver without advanced liver disease Avoid alcohol, limit acetaminophen or medication containing acetaminophen, limit fatty foods Repeat CMP in 4 months (5) Irregular periods/menstrual cycles: Code(s): N92.6 - Irregular menstruation, unspecified Category: Medical Plan: Patient reports that this started after discontinuing Depo injections 3 years ago She was referred to OBGYN and has a pending appt (6) Anemia: Code(s): D64.9 - Anemia, unspecified Category: Medical Qualifiers: Anemia type: unspecified type Qualified Code(s): D64.9 - Anemia, unspecified Plan: Patient reports a history. H&H within normal limits. MCV an MCH noted to be low. The patient is complaining of fatigue. Mild iron deficiency noted. Will continue to monitor (7) Migraines: Code(s): G43.909 - Migraine, unspecified, not intractable, without status migrainosus Category: Medical Qualifiers: Migraine type: unspecified Status migrainosus presence: with status migrainosus Intractability: not intractable Qualified Code(s): G43.901 - Migraine, unspecified, not intractable, with status migrainosus Plan: Patient reports migraines the last for 3 days interval at times. Patient was started on vitamin B2 400 mg daily, magnesium oxide 400 mg at bedtime. Continues to take Tylenol for headache. Increase fluid intake. Sumatriptan 50 mg p.r.n. ordered for severe headaches. The patient was referred to Neurology. Neurology saw the patiient and start her on topiramate 100mg bid and sumatriptan succinate 100 mg Q4H PRN with MDD = 200mg (8) Asthma: Code(s): J45.909 - Unspecified asthma, uncomplicated Category: Medical Qualifiers: Asthma severity: moderate Asthma persistence: persistent Asthma complication type: unspecified Qualified Code(s): J45.40 - Moderate persistent asthma, uncomplicated Plan: Reports that the breathing has been much better since starting back on her inhalers. Lifestyle modifications like smoking cessation. Wear a mask when around irritants, fumes, or particulate matter (e.g., painting, lawn mowing). Increase humidification at home, especially in the winter. Annual flu shots and the pneumonia shot can mitigate exacerbation. Increase fluids if not contraindicated because of heart failure. Continue Symbicort 2 puffs inhalation b.i.d., albuterol sulfate 90 mcg/actuation 2 puff inhalation q.6 p.r.n. (9) HLD (hyperlipidemia): Code(s): E78.5 - Hyperlipidemia, unspecified Category: Medical Qualifiers: Hyperlipidemia type: mixed hyperlipidemia Qualified Code(s): E78.2 - Mixed hyperlipidemia Plan: Triglycerides continue to be elevated, low HDL, discussed dietary modifications like process foods in carbohydrate. Encouraged taking fish oil and Co Q10 supplements. (10) Fatigue: Code(s): R53.83 - Other fatigue Category: Medical Qualifiers: Fatigue type: unspecified Qualified Code(s): R53.83 - Other fatigue Plan: The patient reports that she is feeling less than she did before. Initially, there was plans to have the patient do sleep study. She has a gastric bypass surgery scheduled, will hold off for now. (11) Yeast infection: Code(s): B37.9 - Candidiasis, unspecified Category: Medical Plan: Recurrent he has infection, monthly reports that she has been taking fluconazole 150 mg that she purchased in [place] Reports that she will not be able to take p.o. medications after surgery for a little while Wants to make sure she has another treatment option Clotrimazole 1% intravaginal solution ordered (12) Genital herpes: Code(s): A60.00 - Herpesviral infection of urogenital system, unspecified Category: Medical Qualifiers: Herpes simplex infection site: vulvovaginitis Qualified Code(s): A60.04 - Herpesviral vulvovaginitis Plan: Recurrent outbreaks managed with valacyclovir 500 mg b.i.d. 10 days Requesting different option similarly other than p.o. medications Imiquimod 5% topical 3 times a week ordered Orders: Orders Comprehensive [place]. Panel Fast 4 Months A60.04 - Herpesviral vulvovaginitis, B37.9 - Candidiasis, unspecified, E66.01 - Morbid (severe) obesity due to excess calories, E78.2 - Mixed hyperlipidemia, J45.40 - Moderate persistent asthma, uncomplicated, K21.9 - Gastro-esophageal reflux disease without esophagitis, K44.9 - Diaphragmatic hernia without obstruction or gangrene, K76.0 - Fatty (change of) liver, not elsewhere classified, R12 - Heartburn, R53.83 - Other fatigue, R73.03 - Prediabetes Lipid Panel 4 Months A60.04 - Herpesviral vulvovaginitis, B37.9 - Candidiasis, unspecified, E66.01 - Morbid (severe) obesity due to excess calories, E78.2 - Mixed hyperlipidemia, J45.40 - Moderate persistent asthma, uncomplicated, K21.9 - Gastro-esophageal reflux disease without esophagitis, K44.9 - Diaphragmatic hernia without obstruction or gangrene, K76.0 - Fatty (change of) liver, not elsewhere classified, R12 - Heartburn, R53.83 - Other fatigue, R73.03 - Prediabetes Vitamin D 25-OH Total 4 Months A60.04 - Herpesviral vulvovaginitis, B37.9 - Candidiasis, unspecified, E66.01 - Morbid (severe) obesity due to excess calories, E78.2 - Mixed hyperlipidemia, J45.40 - Moderate persistent asthma, uncomplicated, K21.9 - Gastro-esophageal reflux disease without esophagitis, K44.9 - Diaphragmatic hernia without obstruction or gangrene, K76.0 - Fatty (change of) liver, not elsewhere classified, R12 - Heartburn, R53.83 - Other fatigue, R73.03 - Prediabetes Complete Blood Count Auto Diff 4 Months E66.01 - Morbid (severe) obesity due to excess calories, E78.2 - Mixed hyperlipidemia, J45.40 - Moderate persistent asthma, uncomplicated, K21.9 - Gastro-esophageal reflux disease without esophagitis, K44.9 - Diaphragmatic hernia without obstruction or gangrene, K76.0 - Fatty (change of) liver, not elsewhere classified, R12 - Heartburn, R53.83 - Other fatigue, R73.03 - Prediabetes TSH reflex Free T4 4 Months A60.04 - Herpesviral vulvovaginitis, B37.9 - Candidiasis, unspecified, E66.01 - Morbid (severe) obesity due to excess calories, E78.2 - Mixed hyperlipidemia, J45.40 - Moderate persistent asthma, uncomplicated, K21.9 - Gastro-esophageal reflux disease without esophagitis, K44.9 - Diaphragmatic hernia without obstruction or gangrene, K76.0 - Fatty (change of) liver, not elsewhere classified, R12 - Heartburn, R53.83 - Other fatigue, R73.03 - Prediabetes UA CC w/rflx Micro + Cult 4 Months A60.04 - Herpesviral vulvovaginitis, B37.9 - Candidiasis, unspecified, E66.01 - Morbid (severe) obesity due to excess calories, E78.2 - Mixed hyperlipidemia, J45.40 - Moderate persistent asthma, uncomplicated, K21.9 - Gastro-esophageal reflux disease without esophagitis, K44.9 - Diaphragmatic hernia without obstruction or gangrene, K76.0 - Fatty (change of) liver, not elsewhere classified, R12 - Heartburn, R53.83 - Other fatigue, R73.03 - Prediabetes Hemoglobin A1c 4 Months A60.04 - Herpesviral vulvovaginitis, B37.9 - Candidiasis, unspecified, E66.01 - Morbid (severe) obesity due to excess calories, E78.2 - Mixed hyperlipidemia, J45.40 - Moderate persistent asthma, uncomplicated, K21.9 - Gastro-esophageal reflux disease without esophagitis, K44.9 - Diaphragmatic hernia without obstruction or gangrene, K76.0 - Fatty (change of) liver, not elsewhere classified, R12 - Heartburn, R53.83 - Other fatigue, R73.03 - Prediabetes Medications: New imiquimod 5% 1 appl topical 3XW 24 ea 3RF clotrimazole 1% 1 appful vaginal BEDTIME 45 grams 0RF 7 days Changed From albuterol sulfate 90 mcg/actuation 2 puffs inhalation Q6H PRN wheezing To albuterol sulfate 90 mcg/actuation 2 puffs inhalation Q6H PRN 8.5 grams 3RF wheezing 90 days Refilled budesonide-formoterol 160-4.5 mcg/actuation (Symbicort) 2 puffs inhalation BID 10.2 grams 3RF Discontinued topiramate XR Discontinued Reason: Doctor's Order 50 mg PO BID 30 days 60 caps 4RF
[2025-07-16 15:17] VITALS: BP 108/74; PULSE 72; RESP 18; O2SAT 97; BMI 42.4
--- OUTSIDE RECORDS SUMMARY | 2025-07-16 16:28 | XMS_ITS | Clinical Summary ---
Author Organization [facility] Address [address] [place], [place] Phone Care Team Providers Care Rivet Bucker Name Role Phone Concepción Clark MD Primary Care Provider [phone] Allergies No known active allergies Medications albuterol [...] Orientation Straight 09/10/2024 8: 20 PM EST Last Filed Vital Signs Vital Sign Reading [...] Discussed and Confirmed with patient. Care Teams Rivet Bucker Relationship Specialty Start Date End Date Concepción Clark MD [address] [place] [id number] PCP - General Internal Medicine 05/21/23
== END 2025-07-16 16:28 | disposition home or self-care (01) ==
LOC: HO.HMCH 15:14
DX: R73.03 Prediabetes (principal); E66.01 Morbid (severe) obesity due to excess calories; R12 Heartburn; K76.0 Fatty (change of) liver, not elsewhere classified; N92.6 Irregular menstruation, unspecified; D64.9 Anemia, unspecified; G43.901 Migraine, unspecified, not intractable, with status migrainosus; J45.40 Moderate persistent asthma, uncomplicated; E78.2 Mixed hyperlipidemia; R53.83 Other fatigue; B37.9 Candidiasis, unspecified; A60.04 Herpesviral vulvovaginitis

== ENCOUNTER → 2025-07-16 15:13 | Outpatient (BNVA) | payer OTHER, SELFPAY | DX: R73.03 Prediabetes (principal); E66.01 Morbid (severe) obesity due to excess calories; R12 Heartburn; K76.0 Fatty (change of) liver, not elsewhere classified; N92.6 Irregular menstruation, unspecified; D64.9 Anemia, unspecified; G43.901 Migraine, unspecified, not intractable, with status migrainosus; J45.40 Moderate persistent asthma, uncomplicated; E78.2 Mixed hyperlipidemia; R53.83 Other fatigue; B37.9 Candidiasis, unspecified; A60.04 Herpesviral vulvovaginitis | CPT/HCPCS: 99212 ==

== ENCOUNTER 2025-07-17 09:45 | Outpatient (REF) | payer OTHER, SELFPAY ==
--- NOTE | ~2025-07-17 | FL_ITS ---
EXAMINATION: XR FLUOROSCOPY UPPER GI WITH AIR CLINICAL INFORMATION: Moderate to severe obesity due to excess calories COMPARISON: None available. TECHNIQUE: Routine upper GI air contrast study was performed in upright and lying position FINDINGS: Following oral administration of thick barium and effervescent granules in upright view there is normal propagation of bolus from the oral cavity through the pharynx, esophagus into stomach without obstruction, narrowing or stricture. On placing patient supine and prone lying the course, caliber and peristalsis of the stomach, duodenal bulb and the sweep is normal. The mucosal pattern of stomach and the duodenum is normal. Increased gastric secretions are visualized without any mucosal erosion or ulceration. FLUOROSCOPY TIME: 1 minute 33 seconds DOSE AREA PRODUCT: 2185 uGy-m2 (microgray-meter squared) FL/FL upper GI w air IMPRESSION: Mild increased gastric secretions. Otherwise unremarkable upper GI air contrast study . Electronically signed by: Rell Dwyer MD 07/17/2025 12:20 PM PETE
== END 2025-07-17 09:46 | disposition home or self-care (01) ==
LOC: HO.XRAY 09:45
PROVIDERS: Visit Provider Surgery
DX: E66.01 Morbid (severe) obesity due to excess calories (principal); K21.9 Gastro-esophageal reflux disease without esophagitis; J45.40 Moderate persistent asthma, uncomplicated; K76.0 Fatty (change of) liver, not elsewhere classified; K44.9 Diaphragmatic hernia without obstruction or gangrene; E78.2 Mixed hyperlipidemia
CPT/HCPCS: 74246

== ENCOUNTER → 2025-07-17 09:48 | Outpatient (BNV) | payer OTHER, SELFPAY | PROVIDERS: Visit Provider Radiology Diagnostic Radiology | DX: E66.01 Morbid (severe) obesity due to excess calories (principal); Z68.41 Body mass index [BMI] 40.0-44.9, adult; E16.4 Increased secretion of gastrin | CPT/HCPCS: 74246 ==